=== PATIENT | male | born 1975 | race Caucasian/White ===

== ENCOUNTER 2022-12-02 08:09 | Outpatient (CLI) | payer OTHER, SELFPAY ==
[2022-12-02 14:55] LABS: Chloride* 103 mmol/L (96-114); Sodium* 138 mmol/L (135-149)
[2022-12-02 14:56] LABS: Potassium* 3.9 mmol/L (3.6-5.1)
[2022-12-02 14:58] LABS: Blood Urea Nitrogen* 17 mg/dL (5-24); Carbon Dioxide* 30 mmol/L (20-32); Cholesterol* 162 mg/dL (90-199); Estimated Glomerular Filt Rate 94 ml/min
[2022-12-02 14:59] LABS: Calcium* 9.2 mg/dL (8.4-10.6); Glucose* 89 mg/dL (60-115); HDL Cholesterol* 47 mg/dL (>=40); LDL Cholesterol Calculated 97 mg/dL (<100); Triglycerides* 90 mg/dL (40-149)
[2022-12-04 22:22] LABS: PSA Screen* 0.78 ng/mL (0.10-4.00)
== END 2022-12-02 08:10 | disposition home or self-care (01) ==
PROVIDERS: PCP Emergency Medicine; Visit Provider Emergency Medicine
DX: Z00.00 Encounter for general adult medical examination without abnormal findings (principal); I10 Essential (primary) hypertension; Z12.5 Encounter for screening for malignant neoplasm of prostate; Z13.6 Encounter for screening for cardiovascular disorders
CPT/HCPCS: 80048; 80061; 84153

== ENCOUNTER 2023-02-03 19:33 | Outpatient (CLI) | payer OTHER, SELFPAY ==
--- NOTE | 2023-02-11 08:54 | P.SLS_ITS ---
Sleep Study Details Details Interpreting Provider: Evert Date of Sleep Study: 02/03/23 Sleep Study Details: STUDY TYPE:? Home ? BMI:? 25.8 ORDERING PROVIDER:? Supriya INDICATION:? Concerns about sleep apnea ? SLEEP SUMMARY:? 566 minutes monitored RESPIRATORY SUMMARY:? AHI 11.6, supine 15.9, left lateral 3.0 Low oxygen 82 0.9% of study oxygen less than 90% Snoring 5.2% PERIODIC LIMB MOVEMENTS OF SLEEP:? Not recorded on home study CARDIAC:? Range 48-91, mean 60.6 IMPRESSION:? Mild obstructive sleep apnea with supine position dependency RECOMMENDATION: Treatment options include positional therapy, CPAP AutoSet 4- 17, dental appliance and/or airway expansion surgery. Would favor CPAP trial.
== END 2023-02-03 19:34 | disposition home or self-care (01) ==
LOC: SLEEP 19:34
PROVIDERS: PCP Emergency Medicine; Visit Provider Emergency Medicine
DX: G47.33 Obstructive sleep apnea (adult) (pediatric) (principal)
CPT/HCPCS: 95806

== ENCOUNTER 2023-04-01 16:44 | Emergency (ER) | payer OTHER, SELFPAY ==
[2023-04-01 16:50] VITALS: BP 126/80; PULSE 82; RESP 18; TEMP 36.6; O2SAT 98; BMI 26.0
[2023-04-01 17:02] LABS: Appearance Urine Cloudy (Clear); Bilirubin Urine Negative (Negative); Blood Urine Negative (Negative); Color Urine Yellow (Yellow); Glucose Urine Negative (Negative); Ketones Urine Negative (Negative); Leukocyte Esterase Urine Negative (Negative); Nitrite Urine Negative (Negative); Protein Urine Negative (Negative); Urobilinogen Urine 0.2 (0.2-1.0); pH Urine 7.5 (5.0-8.5)
--- NOTE | 2023-04-01 17:07 | CRLHL7_ITS ---
For Patients: As a result of the Century Cures Act, medical imaging exams and procedure reports are released immediately into your electronic medical record. You may view this report before your referring provider. If you have questions, please contact your health care provider. INDICATION: Right flank pain. TECHNIQUE: CT abdomen and pelvis without contrast. COMPARISON: March 16, 2021. FINDINGS: Lower chest: Scattered atelectasis. Liver: Normal in size and attenuation. No suspicious masses. Gallbladder and bile ducts: No stones or inflammation. No biliary dilatation. Pancreas: Unremarkable. No mass or inflammation. Spleen: Normal in size. No masses. Adrenal glands: Normal in size. No nodules. Kidneys: Right superior pole simple renal cyst. At least 2 punctate nonobstructing right renal stones. Normal in size. No suspicious masses, or hydronephrosis. GI tract: Mild colonic stool burden. Normal in caliber. No sign of mass or inflammation. Normal appendix. Vasculature: Abdominal aorta is normal in caliber. Lymph nodes: No lymphadenopathy. Peritoneum/Abdominal Wall: Right inguinal hernia repair. Tiny umbilical hernia. No sign of mass or infiltration. No free air or significant free fluid. Pelvis: Unremarkable. No pelvic masses. Bones: Unremarkable for age. IMPRESSION: No acute intra-abdominal/pelvic abnormality including obstructive uropathy as questioned. At least 2 punctate nonobstructing right renal stones. Mild colonic stool burden. Please note that all CT scans at this facility use dose modulation, iterative reconstruction, and/or weight-based dosing when appropriate to reduce radiation dose to as low as reasonably achievable. Dictated by Robert Perales MD @ 04/01/2023 5:47:21 PM (Electronically Signed)
[2023-04-01 17:17] LABS: Amorphous Sediment Urine Moderate; RBC Urine 0-2 (0-2); WBC Urine 0-2 (0-5)
--- NOTE | 2023-04-01 18:23 | ED_ITS ---
HPI - General Adult General Date Seen: 04/01/23 Chief complaint: Flank Pain Stated complaint: Kidney stone pain/symptoms Time Seen by Provider: 04/01/23 16:57 Source: patient Mode of arrival: ambulatory Limitations: no limitations History of Present Illness HPI narrative: Patient is a 48-year-old male comes in with about four days of pain in his right lower quadrant. It is not radiating up to his right flank. He is clear that is not moving in the other direction. There is no dysuria, urgency, frequency, hematuria. He does have a history of kidney stones and required a procedure wit h his last stone about five years ago. He is using some occasional Tylenol and the pain is never been severe. He has also had a right inguinal hernia repair with mesh. Related Data Home Medications Medication Instructions Recorded Confirmed aspirin 81 mg chewable tablet 81 mg PO DAILY 07/11/22 04/01/23 cholecalciferol (vitamin D3) 25 1,000 unit PO DAILY 07/11/22 04/01/23 mcg (1,000 unit) tablet loratadine 10 mg tablet 10 mg PO DAILY 07/11/22 04/01/23 Previous Rx's Medication Instructions Recorded clobetasol 0.05 % topical cream 1 applic topical QDAY #60 grams 08/08/22 diltiazem HCl 180 mg 180 mg PO DAILY #90 caps 12/04/22 capsule,extended release 24 hr losartan 100 1 tab PO DAILY #90 tabs 12/04/22 mg-hydrochlorothiazide 25 mg tablet valacyclovir 1 gram tablet 1,000 mg PO DAILY #90 tabs 12/04/22 Allergies Allergy/AdvReac Type Severity Reaction Status Date / Time lisinopril Allergy Mild eczema Verified 04/01/23 16:54 prednisone AdvReac Mild tachycardic, Verified 04/01/23 16:54 flushing Penicillin Allergy Mild Rash Uncoded 12/04/22 14:54 Review of Systems Narrative: Review of systems is outlined above otherwise noted to be negative. [facility] Medical History (Updated 04/01/23 @ 18:14 by Hebert Cantu MD) Snoring ?R06.83 - Snoring (ICD-10) Normal colonoscopy Abnormal EKG ?R94.31 - Abnormal electrocardiogram [ECG] [EKG] (ICD-10) Normal echocardiogram Psoriasis ?L40.9 - Psoriasis, unspecified (ICD-10) Occlusion of left ureter ?N13.5 - Crossing vessel and stricture of ureter without hydronephrosis (ICD- 10) Surgical History (Updated 04/18/22 @ 09:39 by Luis Null) History of ureter stent History of laser assisted in situ keratomileusis ?Z98.890 - Other specified postprocedural states (ICD-10) History of inguinal hernia repair (2006) ?Z98.890 - Other specified postprocedural states (ICD-10) ?Z87.19 - Personal history of other diseases of the digestive system (ICD-10) Family History (Updated 04/18/22 @ 09:40 by Luis Null) Mother Diabetes Heart disease High blood pressure Depression Father Heart disease High blood pressure, Onset Age: 20 Depression Maternal Grandfather Stroke, Onset Age: 57 Other Cancer Social History (Updated 04/18/22 @ 09:41 by Luis Null) Narrative: chewing tobacco use consumes alcohol occasionally 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 HEENT: Conjunctiva clear. Neck is supple without adenopathy. Lungs: Clear to auscultation in all espinosa. No wheezes, rales, rhonchi. Heart: Regular rate and rhythm without murmur. Abdomen: Soft with mild right lower quadrant tenderness. No palpable mass. No guarding, rigidity, rebound. Bowel sounds are normal. Mild right CVA te nderness. Extremities: No cyanosis or edema. Good distal pulses. Skin: No abnormalities noted of the exposed skin. Neurologic: Awake, alert, fully oriented. Neurologic exam is nonfocal. Const: Vital Signs, click to edit/add: Vital Signs - 24 hr 04/01/23 16:50 Temperature 98 F Pulse Rate [Pulse Oximeter] 82 Respiratory Rate 18 Blood Pressure [Ri ght Upper Arm] 126/80 Pulse Oximetry 98 Oxygen Delivery Me thod Room Air Course Course Hospital Course: Patient seen and examined. CT of the abdomen and pelvis without contrast is ordered to rule out kidney stone. He denies a need for pain medication. Reevaluation(s) Reevaluation #1: CT fails to show any abnormalities consistent with his pain. He has some mild constipation. Vital Signs Vital signs: Initial Vital Signs Temperature 98 F 04/01/23 16:50 Temperature Source Temporal Artery Scan 04/01/23 16:50 Pulse Rate 82 04/01/23 16:50 Respiratory Rate 18 04/01/23 16:50 Blood Pressure 126/80 04/01/23 16:50 Blood Pressure Mean 95 04/01/23 16:50 Blood Pressure Position Sitting 04/01/23 16:50 Pulse Oximetry 98 04/01/23 16:50 Oxygen Delivery Method Room Air 04/01/23 16:50 Vital Signs Temperature 98 F 04/01/23 16:50 Pulse Rate 82 04/01/23 16:50 Respiratory Rate 18 04/01/23 16:50 Blood Pressure 126/80 04/01/23 16:50 Pulse Oximetry 98 04/01/23 16:50 Oxygen Delivery Method Room Air 04/01/23 16:50 Temperature 98 F 04/01/23 16:50 Pulse Rate 82 04/01/23 16:50 Respiratory Rate 18 04/01/23 16:50 Blood Pressure 126/80 04/01/23 16:50 Pulse Oximetry 98 04/01/23 16:50 Oxygen Delivery Method Room Air 04/01/23 16:50 Medical Decision Making MDM Narrative Medical decision making narrative: He was reassured that he does not have a kidney stone. He certainly may have some discomfort and pulling from his mesh. I do not see anything acute. His pain is not severe. Lab Data Labs: Lab Results 04/01/23 Range/Units 16:50 Urine Color Yellow (Yellow) Urine Appearance Cloudy A (Clear) Urine pH 7.5 (5.0-8.5) Ur Specific [place] 1.020 (1.000-1.030) Urine Protein Negative (Negative) Urine Glucose (UA) Negative (Negative) Urine Ketones Negative (Negative) Urine Blood Negative (Negative) Urine Nitrite Negative (Negative) Urine Bilirubin Negative (Negative) Urine Urobilinogen 0.2 (0.2-1.0) Ur Leukocyte Esterase Negative (Negative) Urine RBC 0-2 (0-2) Urine WBC 0-2 (0-5) Ur Squamous Epith Cells None (None-Few) Amorphous Sediment Moderate A (None) Urine Bacteria None (None) Discharge Plan Discharge Clinical Impression: Right groin pain Patient Disposition: Home, Self-Care Condition: Stable Additional Instructions: Tylenol or Ibuprofen for pain. Heat. Stretching. Follow up in the clinic if not improving. Prescriptions: No Action clobetasol 0.05 % cream 1 applic topical QDAY Qty: 60 2RF Rx Instructions: Apply topically to affected area BID as directed. loratadine 10 mg tablet 10 mg PO DAILY cholecalciferol (vitamin D3) 25 mcg (1,000 unit) tablet 1,000 unit PO DAILY aspirin 81 mg tablet,chewable 81 mg PO DAILY diltiazem HCl 180 mg capsule,extended release 24hr 180 mg PO DAILY Qty: 90 4RF losartan-hydrochlorothiazide 100-25 mg tablet 1 tab PO DAILY Qty: 90 4RF valacyclovir 1 gram tablet 1,000 mg PO DAILY Qty: 90 3RF Follow Up/Referrals: Charlotte Epps MD [Primary Care Provider] - Stand Alone Forms: [employer] Info Instructions
== END 2023-04-01 18:21 | disposition home or self-care (01) ==
PROVIDERS: Emergency Provider Family Medicine; PCP Emergency Medicine
DX: R10.30 Lower abdominal pain, unspecified (principal)
CPT/HCPCS: 74176; 81001; 99282; 99283; 99284

== ENCOUNTER 2024-01-08 17:49 | Emergency (ER) | payer OTHER, SELFPAY ==
[2024-01-08 18:05] VITALS: BP 127/82; PULSE 71; RESP 18; TEMP 36.7; O2SAT 98; BMI 26.6
--- NOTE | 2024-01-08 18:17 | ED_ITS ---
HPI - General Adult General Date Seen: 01/08/24 Chief complaint: Abdominal Pain Stated complaint: stomach pain Time Seen by Provider: 01/08/24 18:13 History of Present Illness HPI narrative: 48-year-old male with a history of GERD, hypertension, known gallbladder sludge (has not had cholecystectomy), psoriatic arthritis, psoriasis, distant history of kidney stone with ureteral stent, previous repair, previous toe fracture who presents to the ER this afternoon for evaluation of abdominal pain affecting his right upper abdomen epigastric area. The pain radiates through to his back/right flank. Patient was on spring break with his family last week. They traveled to [place]. He does not drink alcohol but he does note that he a lot of heavy food that he ?probably should not have eaten? while he was on vacation. Beginning about 5 nights ago on Friday night he has developed some pain. It is located in his upper abdomen, on the right side of the epigastrium and sometimes radiating to the right upper quadrant and sometimes shooting through to his back and right flank. It has been persistent since Friday. He was mildly nauseous and his son was also slightly 6 so he 1st thought he might just have a ?stomach bug. ?. He he was trying to wait and see if his symptoms would get better. However they do not really get better. He is not really nauseous or vomiting but he has had a poor appetite. Bowel movements have been normal. Urination has been normal. No fever. Since yesterday his pain is actually been getting worse. It is not clearly triggered by food. This morning he had an episode where he felt like something might have passed like a kidney stone but then the pain came back again. No jaundice. No lower abdominal pain. Related Data Home Medications Medication Instructions Recorded Confirmed aspirin 81 mg chewable tablet 81 mg PO DAILY 07/11/22 01/08/24 cholecalciferol (vitamin D3) 25 1,000 unit PO DAILY 07/11/22 01/08/24 mcg (1,000 unit) tablet cetirizine 10 mg tablet (Zyrtec) 10 mg PO QDAY PRN 10/22/23 01/08/24 Previous Rx's Medication Instructions Recorded diltiazem HCl 180 mg 180 mg PO DAILY #90 caps 12/04/22 capsule,extended release 24 hr losartan 100 1 tab PO DAILY #90 tabs 12/04/22 mg-hydrochlorothiazide 25 mg tablet fluticasone propionate 50 1 spray intranasal QDAY #16 grams 10/09/23 mcg/actuation nasal spray,suspension (Flonase Allergy Relief) hydrocortisone acetate 25 mg 25 mg [place] BID #24 ea 10/22/23 rectal suppository (Anusol-HC) valacyclovir 1 gram tablet 1,000 mg PO DAILY #90 tabs 12/04/23 famotidine 20 mg tablet 20 mg PO BID 3 days #6 tabs 01/08/24 lansoprazole 30 mg capsule,delayed 30 mg PO QDAY 4 weeks #28 caps 01/08/24 release Allergies Allergy/AdvReac Type Severity Reaction Status Date / Time Penicillins Allergy Intermediate Rash Verified 01/08/24 11:56 lisinopril Allergy Mild eczema Verified 01/08/24 11:56 Influenza Virus Vaccines AdvReac Intermediate skin Verified 01/08/24 11:56 irritation on his face prednisone AdvReac Mild tachycardic, Verified 01/08/24 11:56 flushing [facility] Medical History (Updated 01/08/24 @ 21:29 by Matthew Welsh MD) GERD (gastroesophageal reflux disease) ?K21.9 - Gastro-esophageal reflux disease without esophagitis (ICD-10) Allergic rhinitis ?J30.9 - Allergic rhinitis, unspecified (ICD-10) Sleep apnea in adult ?G47.30 - Sleep apnea, unspecified (ICD-10) Psoriatic arthritis ?L40.50 - Arthropathic psoriasis, unspecified (ICD-10) Low vitamin D level ?R79.89 - Other specified abnormal findings of blood chemistry (ICD-10) Hypertension ?I10 - Essential (primary) hypertension (ICD-10) Herpes simplex virus (HSV) infection ?B00.9 - Herpesviral infection, unspecified (ICD-10) Abnormal EKG ?R94.31 - Abnormal electrocardiogram [ECG] [EKG] (ICD-10) Psoriasis ?L40.9 - Psoriasis, unspecified (ICD-10) Surgical History (Updated 04/18/22 @ 09:39 by uLis Null) History of ureter stent History of laser assisted in situ keratomileusis ?Z98.890 - Other specified postprocedural states (ICD-10) History of inguinal hernia repair (2006) ?Z98.890 - Other specified postprocedural states (ICD-10) ?Z87.19 - Personal history of other diseases of the digestive system (ICD-10) Family History (Updated 04/18/22 @ 09:40 by Luis Null) Mother Diabetes Heart disease High blood pressure Depression Father Heart disease High blood pressure, Onset Age: 20 Depression Maternal Grandfather Stroke, Onset Age: 57 Other Cancer Social History (Updated 04/18/22 @ 09:41 by Luis Null) Narrative: chewing tobacco use 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 Alert. Conversant. Non toxic. HENT: Head: Atraumatic. Nose: Nose normal. Mouth/Throat: Oral mucosa is clear and moist. no trismus. Pharynx normal Eyes: Conjunctivae normal. EOM normal. Pupils equal, round, and reactive to light. No scleral icterus. Neck: Normal range of motion. Neck supple. No tracheal deviation present. Cardiovascular: Normal rate, regular rhythm. No gallop. No friction rub. No murmur heard. Symmetric radial artery pulses Pulmonary/Chest: Effort normal. No stridor. No respiratory distress. No wheezes. No rales. No rhonchi . No tenderness. Abdominal: Soft. Bowel sounds normal. No distension. No mass. Right upper quadrant and epigastric tenderness. No hepatomegaly. No Little sign. No CVA tenderness. No rebound. No guarding. No lower abdominal tenderness. No palpable masses or hernias. Musculoskeletal: RUE: Normal range of motion. No tenderness. No deformity LUE: Normal range of motion. No tenderness. No deformity RLE: Normal range of motion. No edema. No tenderness. No deformity LLE: Normal range of motion. No edema. No tenderness. No deformity Neurological: Alert and oriented to person, place, and time. Normal strength. CN II-VII intact. No sensory deficit. GCS eye subscore is 4. GCS verbal subscore is 5. GCS motor subscore is 6. Normal coordination Skin: Skin is warm and dry. No rash noted. No pallor. Normal capillary refill. Psychiatric: Normal mood. Normal affect. Const: Vital Signs, click to edit/add: Vital Signs - 24 hr 01/08/24 18:05 Temperature 98.0 F Pulse Rate [Pulse Oximeter] 71 Respiratory Rate 18 [facility] 127/82 Pulse Oximetry 98 Oxygen Delivery Me thod Room Air Course Vital Signs Vital signs: Initial Vital Signs Temperature 98.0 F 01/08/24 18:05 Temperature Source Temporal Artery Scan 01/08/24 18:05 Pulse Rate 71 01/08/24 18:05 Pulse Rhythm Regular 01/08/24 18:05 Respiratory Rate 18 01/08/24 18:05 Blood Pressure 127/82 01/08/24 18:05 Blood Pressure Mean 97 01/08/24 18:05 Blood Pressure Position Sitting 01/08/24 18:05 Pulse Oximetry 98 01/08/24 18:05 Oxygen Delivery Method Room Air 01/08/24 18:05 Vital Signs Temperature 98.0 F 01/08/24 18:05 Pulse Rate 71 01/08/24 18:05 Respiratory Rate 18 01/08/24 18:05 Blood Pressure 127/82 01/08/24 18:05 Pulse Oximetry 98 01/08/24 18:05 Oxygen Delivery Method Room Air 01/08/24 18:05 Temperature 98.0 F 01/08/24 18:05 Pulse Rate 71 01/08/24 18:05 Respiratory Rate 18 01/08/24 18:05 Blood Pressure 127/82 01/08/24 18:05 Pulse Oximetry 98 01/08/24 18:05 Oxygen Delivery Method Room Air 01/08/24 18:05 Medical Decision Making MDM Narrative Medical decision making narrative: Very pleasant 48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 The differential diagnosis of abdominal pain includes: Appendicitis, Bowel Obstruction, Ulcer, Ischemia, Cholecystitis, Diverticulitis, Pancreatitis, UTI, kidney stone, Enteritis/Colitis, amongst many other etiologies. He reports a history of gallbladder sludge with previous gallbladder ultrasound and HIDA scan without any definitive finding of cholecystitis. He also has a history of GERD and possible stomach acid problems. Laboratory testing does not reveal a cause for the patient's pain. Right upper quadrant gallbladder and CT abdomen pelvis with contrast are both noted to show contracted gallbladder but no other signs of acute inflammation around the gallbladder. No other acute surgical finding discovered on imaging or lab workup. The exact etiology of the abdominal pain is not clear at this time. Symptoms could reflect possible peptic ulcer disease or duodenitis. No finding of clear inflammation on the stomach or duodenum noted on CT. No free air. No symptoms of GI bleeding. Hemodynamics are stable and hemoglobin is normal. No life threatening cause or need for emergent surgery or hospital admission is detected today. The patient was advised that if symptoms do not completely resolve within another 20 hours re-evaluation with primary care or return to the ED is indicated. The patient also understands that if they worsen, they should return to the ER right away. I discussed the uncertainty about the diagnosis and answered the patient's questions. Abdominal pain return precautions discussed. He was already started on famotidine by primary care today and will continue that. He wants to hold off on PPIs given previous side effects from omeprazole. I think it is reasonable to try empiric famotidine for now. He will follow up his primary care to consider further workup with EGD or H pylori testing. Lab Data Labs: Lab Results 01/08/24 01/08/24 Range/Units 18:30 18:32 WBC 9.85 (4.50-11.00) K/uL RBC 5.23 (4.30-5.90) m/uL Hgb 16.0 (13.5-17.5) gm/dL Hct 43.1 (37.0-53.0) % MCV 82 (80-100) fL MCH 31 (26-34) pg MCHC 37 H (32-36) gm/dL RDW Coeff of Tony 12.9 (11.5-15.5) % Plt Count 330 (140-440) K/uL Neut % (Auto) 60.8 (42.0-72.0) % Lymph % (Auto) 28.2 (20-44) % [place] % (Auto) 8.2 (0.0-11.0) % Eos % (Auto) 1.8 (0.0-7.0) % Baso % (Auto) 0.7 (0.0-3.0) % Neut # (Auto) 5.98 (1.7-7.0) K/uL Lymph # (Auto) 2.78 (0.90-2.90) K/uL [place] # (Auto) 0.80 (0.00-0.90) K/UL Eos # (Auto) 0.18 (0.00-0.50) K/uL Baso # (Auto) 0.07 (0.00-0.30) K/uL Abs Immat Gran (auto) 0.03 (0.00-0.30) K/uL Imm/Tot Granulo (auto) 0.3 % Sodium 137 (135-149) mmol/L Potassium 3.6 (3.6-5.1) mmol/L Chloride 102 (96-114) mmol/L Carbon Dioxide 27 (20-32) mmol/L Anion Gap 8 (7-15) mEq/L BUN 16 (5-24) mg/dL Creatinine 0.9 (0.5-1.5) mg/dL Estimated Creat Clear 98.17 Estimated GFR 106 ml/min Glucose 95 (60-115) mg/dL Calcium 9.2 (8.4-10.6) mg/dL Total Bilirubin 0.6 (0.1-1.5) mg/dL AST 24 (12-35) U/L ALT 28 (4-50) U/L Alkaline Phosphatase 103 (40-150) U/L Total Protein 7.8 (6.0-8.3) g/dL Albumin 4.6 (3.3-5.0) g/dL Lipase 108 (23-300) U/L Urine Color Yellow (Yellow) Urine Appearance Clear (Clear) Urine pH 6.0 (5.0-8.5) Ur Specific [place] 1.015 (1.000-1.030) Urine Protein Negative (Negative) Urine Glucose (UA) Negative (Negative) Urine Ketones Negative (Negative) Urine Blood Negative (Negative) Urine Nitrite Negative (Negative) Urine Bilirubin Negative (Negative) Urine Urobilinogen 0.2 (0.2-1.0) Ur Leukocyte Esterase Negative (Negative) Urine RBC 0-2 (0-2) Urine WBC 0-2 (0-5) Ur Squamous Epith Cells None (None-Few) Urine Bacteria None (None) Imaging Data RUQ US: Attestation: I have reviewed the pertinent imaging results. Radiologist's impression: IMPRESSION: Gallbladder is collapsed with no stones or sludge identified. No significant wall thickness or pericholecystic fluid however there is positive sonographic Little sign of unknown etiology. CT scan - abdomen: Attestation: I have reviewed the pertinent imaging results. Radiologist's impression: Impression: Redemonstration of a somewhat contracted appearing gallbladder. Findings are better characterized on comparison ultrasound. No other acute intra-abdominal abnormality. Discharge Plan Discharge Clinical Impression: Abdominal pain Patient Disposition: Home, Self-Care Condition: Stable Instructions: Abdominal Pain (ED) Additional Instructions: As we discussed, your workup does not reveal the cause for your pain at this time. Please continue on the stomach acid medicine. Monitor your symptoms carefully and if you get worse such as if you have severe pain, fever, bloody vomiting, uncontrolled vomiting or dehydration, weakness, or any other concerning symptoms come back to the ER right away. It please follow-up with your regular doctor tomorrow for a recheck. Prescriptions: No Action cetirizine [Zyrtec] 10 mg tablet 10 mg PO QDAY PRN hydrocortisone acetate [Anusol-HC] 25 mg suppository 25 mg [place] BID Qty: 24 0RF cholecalciferol (vitamin D3) 25 mcg (1,000 unit) tablet 1,000 unit PO DAILY aspirin 81 mg tablet,chewable 81 mg PO DAILY diltiazem HCl 180 mg capsule,extended release 24hr 180 mg PO DAILY Qty: 90 4RF losartan-hydrochlorothiazide 100-25 mg tablet 1 tab PO DAILY Qty: 90 4RF famotidine 20 mg tablet 20 mg PO BID 3 Days Qty: 6 0RF lansoprazole 30 mg capsule,delayed release(DR/EC) 30 mg PO QDAY 28 Days Qty: 28 0RF fluticasone propionate [Flonase Allergy Relief] 50 mcg/actuation spray,suspension 1 spray intranasal QDAY Qty: 16 5RF Rx Instructions: administer into each nostril valacyclovir 1 gram tablet 1,000 mg PO DAILY Qty: 90 3RF Follow Up/Referrals: Hebert Cantu MD [Primary Care Provider] - Stand Alone Forms: [employer] Info Instructions
--- NOTE | 2024-01-08 18:20 | US_ITS ---
Patient: RAUL STAPLES Facility:?[facility] Patient ID:?[id number] Site Patient ID:?[id number]. Site :?1975 Study:?US-Abdomen RUQ-01/08/2024 7:40:09 PM Ordering Physician:?ANGEL BECERRA M.D. Final Report: INDICATION: Right upper quadrant abdomen pain. TECHNIQUE: Ultrasound abdomen limited. Sonographic images of the right upper quadrant were obtained using quesada-scale and color Doppler images. COMPARISON: None. FINDINGS: Liver: Normal in size and echotexture. No suspicious masses. No intrahepatic biliary dilatation. Gallbladder: Gallbladder is collapsed. No stones or sludge identified. No pericholecystic fluid. Normal wall thickness.. Positive sonographic Little sign. Common bile duct: 4 mm. Pancreas: Not well visualized. Right kidney: Normal in size. Normal echotexture and cortex. Subtle hypodensity at the inferior pole of the right kidney likely a cyst measuring up to 1.9 centimeters in diameter. No suspicious masses, stones, or hydronephrosis. Vasculature: Proximal abdominal aorta and IVC are unremarkable. IMPRESSION: Gallbladder is collapsed with no stones or sludge identified. No significant wall thickness or pericholecystic fluid however there is positive sonographic Little sign of unknown etiology. Dictated by Viviane Rosario MD @ 01/08/2024 8:21:39 PM Signed by:?Viviane Rosario MD @01/08/2024 8:21:39 PM (Electronic Signature)
[2024-01-08 18:44] LABS: Basophils Absolute Auto 0.07 K/uL (0.00-0.30); Basophils Percent Auto 0.7 % (0.0-3.0); Eosinophils Absolute Auto 0.18 K/uL (0.00-0.50); Eosinophils Percent Auto 1.8 % (0.0-7.0); Hematocrit 43.1 % (37.0-53.0); Immature Granulocytes Abs Auto 0.03 K/uL (0.00-0.30); Immature Granulocytes Pct Auto 0.3 %; Lymphocytes Absolute Auto 2.78 K/uL (0.90-2.90); Lymphocytes Percent Auto 28.2 % (20-44); Mean Corpuscular HGB Conc 37 gm/dL (32-36); Mean Corpuscular Hemoglobin 31 pg (26-34); Mean Corpuscular Volume 82 fL (80-100); Monocytes Percent Auto 8.2 % (0.0-11.0); Neutrophils Absolute Auto 5.98 K/uL (1.7-7.0); Neutrophils Percent Auto 60.8 % (42.0-72.0); Platelet Count* 330 K/uL (140-440); RDW Coefficient of Variation % 12.9 % (11.5-15.5); Red Blood Count 5.23 m/uL (4.30-5.90); White Blood Count* 9.85 K/uL (4.50-11.00)
[2024-01-08 18:47] LABS: Appearance Urine Clear (Clear); Bilirubin Urine Negative (Negative); Blood Urine Negative (Negative); Color Urine Yellow (Yellow); Glucose Urine Negative (Negative); Ketones Urine Negative (Negative); Leukocyte Esterase Urine Negative (Negative); Nitrite Urine Negative (Negative); Protein Urine Negative (Negative); Specific Gravity Urine 1.015 (1.000-1.030); Urobilinogen Urine 0.2 (0.2-1.0)
[2024-01-08 18:55] LABS: Slide Review Reflex No
[2024-01-08 18:58] LABS: Albumin* 4.6 g/dL (3.3-5.0); Chloride* 102 mmol/L (96-114); Potassium* 3.6 mmol/L (3.6-5.1); Sodium* 137 mmol/L (135-149)
[2024-01-08 19:00] LABS: Bilirubin Total* 0.6 mg/dL (0.1-1.5); Creatinine* 0.9 mg/dL (0.5-1.5); Est. Creatinine Clearance* 98.17; Estimated Glomerular Filt Rate 106 ml/min
[2024-01-08 19:01] LABS: Alanine Aminotransferase* 28 U/L (4-50); Alkaline Phosphatase* 103 U/L (40-150); Anion Gap 8 mEq/L (7-15); Aspartate Amino Transferase* 24 U/L (12-35); Blood Urea Nitrogen* 16 mg/dL (5-24); Calcium* 9.2 mg/dL (8.4-10.6); Carbon Dioxide* 27 mmol/L (20-32); Glucose* 95 mg/dL (60-115); Lipase* 108 U/L (23-300); Total Protein* 7.8 g/dL (6.0-8.3)
[2024-01-08 19:21] LABS: RBC Urine 0-2 (0-2); WBC Urine 0-2 (0-5)
--- NOTE | 2024-01-08 19:23 | CT_ITS ---
Patient: RAUL STAPLES Facility:?[facility] RIS Patient ID:?[id number] Site Patient ID:?[id number]. Site :?1975 Study:?CT-Abdomen/Pelvis W ISOVUE 370-01/08/2024 7:53:23 PM Ordering Physician:SELAM Final Report: Indication: Epigastric and right upper quadrant pain Technique: Volumetric multidetector CT images of the abdomen and pelvis were obtained after the administration of intravenous contrast. 85 cc Isovue 370 low osmolar intravenous contrast Comparison: CT abdomen and pelvis April 01, 2023 and right upper quadrant ultrasound January 08, 2024 Findings: The lung bases demonstrate minimal basilar atelectasis with a small left basilar pneumatocele. The liver is normal in attenuation without intrahepatic biliary ductal dilatation. The portal vein is patent. The gallbladder is mildly contracted. There is no significant common biliary ductal dilatation or abrupt cut off. The spleen is normal in enhancement and size. The stomach and duodenum are grossly unremarkable. The pancreas is normal in enhancement without significant atrophy. The adrenal glands are unremarkable. Cystic changes of the right kidney are again seen with otherwise preserved corticomedullary differentiation. There is a mild amount of stool seen throughout the colon. There is mild distal colonic diverticulosis. The appendix is unremarkable. There is no significant mesenteric, retroperitoneal, or pelvic sidewall lymph nodes. The aorta is nonaneurysmal. There is no significant atherosclerotic disease appreciated. The solid pelvic viscera are grossly unremarkable. There is no free fluid or free air. There is demonstration of a right inguinal mesh. The lumbar vertebral body heights are grossly maintained in satisfactory alignment without evidence of displaced fracture, lytic or blastic lesion. Impression: Redemonstration of a somewhat contracted appearing gallbladder. Findings are better characterized on comparison ultrasound. No other acute intra-abdominal abnormality. Please note that all CT scans at this facility use dose modulation, iterative reconstruction, and/or weight-based dosing when appropriate to reduce radiation dose to as low as reasonably achievable. Dictated by David Coughlin MD @ 01/08/2024 8:46:22 PM Signed by:?David Coughlin MD @01/08/2024 8:46:22 PM (Electronic Signature)
== END 2024-01-08 21:39 | disposition home or self-care (01) ==
PROVIDERS: Emergency Provider Emergency Medicine; PCP Family Medicine
DX: R10.9 Unspecified abdominal pain (principal)
CPT/HCPCS: 36415; 74177; 76705; 80053; 81001; 83690; 85025; 99284; 99285; Q9967

== ENCOUNTER 2024-02-03 08:40 | Outpatient (CLI) | payer OTHER, SELFPAY ==
--- OUTSIDE RECORDS SUMMARY | 2024-02-03 08:44 | XMS_ITS | Clinical Summary ---
Author Name Unknown Organization [facility] [employer] [facility] Address [address] [address] Phone Care Team Providers Care Route Delivery Clerk Name Role Phone Unavailable Primary Care Provider Unavailabl e Allergies Active Allergy Reactions Criticality Noted Date Comments Lisinopril Tachycardia Medium 05/08/2018 Penicillins RASH Medium 08/10/2015 Medications Medication Sig Dispensed Refills Start Date End Date Status aspirin EC 81 MG tablet Take 81 mg by mouth one time a day. Active atenolol (Tenormin) 25 MG tablet Take 25 mg by mouth two times a day. 05/30/2020 Active cyclobenzaprine (Flexeril) 10 MG tablet TAKE 1 TABLET BY MOUTH EVERY DAY AT BEDTIME NEEDED FOR MUSCLE SPASM 06/22/2023 Active dilTIAZem XR (Dilacor XR) 180 MG 24 hour capsule Take 180 mg by mouth one time a day. 06/11/2022 Active hydroCHLOROthiazide (Hydrodiuril) 25 MG tablet Take 25 mg by mouth one time a day. 07/12/2020 Active losartan-hydroCHLOROth iazide (Hyzaar) 100-25 MG oral tablet Take 1 Tablet by mouth one time a day. 12/04/2018 Active valACYclovir (Valtrex) 1 GM tablet Take 1 g by mouth one time a day. Active Active Problems No known active problems Social History Tobacco Use Types Packs/Day Years Used Date Smoking Tobacco: Never Smokeless Tobacco: Current Tobacco Cessation:Ready to Q uit: No; Counseling Given: No Sex and Gender Information Value Date Recorded Sex Assigned at Not on file Gender Identity Not on file Sexual Orientation Not on file Job Start Date Occupation Industry Not on file Not on file Not on file Obstetrics History Last Filed Vital Signs Vital Sign Reading Time Taken Comments Blood Pressure 113/73 06/28/2023 1:30 PM CDT Pulse 76 06/28/2023 1:30 PM CDT Temperature 36.6 ??C (97.9 ??F) 06/28/2023 1:30 PM CD T Respiratory Rate 12 06/28/2023 1:30 PM CDT Oxygen Saturation 100% 06/28/2023 1:30 PM CDT Inhaled Oxygen Concentration - - Weight - - Height - - Body Mass Index - - Plan of Treatment Health Maintenance Due Date Last Done Comments CT Colonography 1975 Cologuard 1975 Colonoscopy 1975 Colorectal Cancer Screening 1975 FIT/FOBT 1975 Sigmoidoscopy 1975 Hepatitis B Vaccine (Standin g Order) (1 of 3 - 19+ 3-dose series) 02/25/1995 PERTUSSIS (Standing Order) 02/25/1995 TETANUS (Standing Order) 02/25/1995 COVID-19 Vaccine (2022-2 4 season) 2023 Influenza Vaccine Seasonal (Standing Order) (#1) 2023 HPV Vaccine (Standing Order) Aged Out No longer eligible based on patient's age to complete this topic Pneumococcal/PCV20 Vaccine: Pediatrics (2-5 yrs) and At-Risk Patients (6-64 yrs) (Standing Order) Aged Out No longer eligible b ased on patient's age to complete this topic Artur Francis I Personal/Family Self 1975 [address] [facility] [place] [id number]
--- OUTSIDE RECORDS SUMMARY | 2024-02-03 08:44 | XMS_ITS | Continuity of Care Document ---
Author Name [facility] Organization [facility] Care Team Providers Care Poultry Picker Name Role Phone [facility] Unavailable Unavailable Problems Combined list of problems from Department of Defense and Veterans Affairs facilities. It does not include entries that were removed or entered in error. Problem Status Onset Date Problem Type Date of Resolution Comme nts Source upper respiratory infection Active Condition DoD Medications Combined list of outpatient medications from Department of Defense and Veterans Affairs facilities.Medications provided include 1) outpatient medications from the last 15 months, and 2) patient-reported medications. Medication Details Route Status Patient Instructions Prescription Expires Prescription Number Last Dispense Date Ordering Provider Order Date Order Qty Source FAMOTIDINE (FAMOTIDINE ), 20MG, TABLET, ORAL, IVAX PHARMACEUT, 100 ea. BOTTLE Active [id number] 2023 6 Pharmac y Data Transac tion Service Facilit y FLUTICASONE PROPIONATE (FLUTICASON E PROPIONATE) , 50MCG, SPRAY SUSP, NASAL, APOTEX NICHOLE, 16 g AER W/ADAP Active [id number] 2023 16 Pharmac y Data Transac tion Service Facilit y FLUTICASONE PROPIONATE (FLUTICASON E PROPIONATE) , 50MCG, SPRAY SUSP, NASAL, APOTEX NICHOLE, 16 g AER W/ADAP Active [id number] 4 2023 16 Pharmac y Data Transac tion Service Facilit y FLUTICASONE PROPIONATE (FLUTICASON E PROPIONATE) , 50MCG, SPRAY SUSP, NASAL, APOTEX NICHOLE, 16 g AER W/ADAP Active [id number] 4 2023 16 Pharmac y Data Transac tion Service Facilit y HYDROCORTIS ONE ACETATE (hydrocorti sone acetate), 25 MG, SUPP.RECT, RECTAL, PATRIN PHARMA, 12 ea. BOX Cancele d [id number] : 2023 0 Pharmac y Data Transac tion Service Facilit y HYDROCORTIS ONE ACETATE (hydrocorti sone acetate), 25 MG, SUPP.RECT, RECTAL, PATRIN PHARMA, 12 ea. BOX Cancele d [id number] : 2023 0 Pharmac y Data Transac tion Service Facilit y HYDROCORTIS ONE ACETATE (hydrocorti sone acetate), 25 MG, SUPP.RECT, RECTAL, PATRIN PHARMA, 12 ea. BOX Cancele d [id number] : 2023 0 Pharmac y Data Transac tion Service Facilit y HYDROCORTIS ONE ACETATE (hydrocorti sone acetate), 25 MG, SUPP.RECT, RECTAL, PATRIN PHARMA, 12 ea. BOX Active [id number] 4 2023 24 Pharmac y Data Transac tion Service Facilit y LANSOPRAZOL E (lansoprazo le), 30 MG, CAPSULE , ORAL, evolso, 90 ea. BOTTLE Active [id number] 4 2023 28 Pharmac y Data Transac tion Service Facilit y LOSARTAN-HY DROCHLOROTH IAZIDE (LOSARTAN/H YDROCHLOROT HIAZIDE), 100MG-25MG, TABLET, ORAL, AUROBINDO PHARM, 90 ea. BOTTLE Active [id number] 4 2023 90 Pharmac y Data Transac tion Service Facilit y OMEPRAZOLE (omeprazole ), 20 MG, CAPSULE DR ORAL, evolso, 1000 ea. BOTTLE Active [id number] 4 2023 30 Pharmac y Data Transac tion Service Facilit y OMEPRAZOLE (omeprazole ), 20 MG, CAPSULE DR ORAL, evolso, 1000 ea. BOTTLE Active [id number] 4 2023 30 Pharmac y Data Transac tion Service Facilit y OMEPRAZOLE (omeprazole ), 20 MG, CAPSULE DR ORAL, evolso, 1000 ea. BOTTLE Active [id number] 4 2023 30 Pharmac y Data Transac tion Service Facilit y ZOLPIDEM TARTRATE (ZOLPIDEM TARTRATE), 10MG, TABLET, ORAL, AUROBINDO PHARM, 100 ea. BOTTLE Active [id number] 4 2023 30 Pharmac y Data Transac tion Service Facilit y Immunizations Combined list of available immunizations from the Department of Defense and Veterans Affairs facilities. Immunization Series Date Given Administered By Site Reaction Lot Number CVX Code Drug Supervisor Laboratory Status Comments Source Influenza, injectable, MDCK, preservative free, quadrivalent 2019 OVERHOLT, () Not Given Influenza , injectabl e, MDCK, preservat bhavana free, quadrival ent DoD Encounters Combined list of: 1) Encounters from Department of Veterans Affairs facilities going back up to thelast 18 months. 2) Encounters from the Department of Defense facilities going back up to 280 months. Location Location Details Encounter Type Encounter Number Reason For Visit Attending Provider ADM Date DC Date Status Disposition Source Theater Facility OUTPATIENT [id number] 05/05 Released w/o Limitations Theater Facilit y Theater Facility OUTPATIENT [id number] 05/09 Released w/o Limitations Theater Facilit y Social History Combined list of available smoking, tobacco, and other social history from Department of Defense and Veterans Affairs facilities. Social History Type Response Date Comment Sour e This section is an empty social history section. DoD
--- OUTSIDE RECORDS SUMMARY | 2024-02-03 08:44 | XMS_ITS | Clinical Summary ---
Author Name Unknown Organization [employer] [facility] Address [place], [place] [address] Care Team Providers Care Rv Parts And Service Director Name Role Phone BabakRomeo Marie LAWSON Primary Care Provider [phone] Allergies Active Allergy Reactions Criticality Noted Date Comments Lisinopril Tachycardia 05/08/2018 Penicillins Rash 08/10/2015 Medications Medication Sig Dispensed Refills Start Date End Date Status aspirin (ECOTRIN) 81 mg enteric coated tablet Take 81 mg by mouth once daily with a meal. Active valACYclovir (VALTREX) 1 gram tablet Take 1 g by mouth once daily. Active losartan-hydrochloro thiazide (HYZAAR) 100-25 mg tabletIndications:Es sential hypertension Take 1 tablet by mouth once daily. 90 tablet 3 12/04/2018 Active atenoloL (TENORMIN) 25 mg tabletIndications:HT N (hypertension) Take 1 tablet by mouth 2 times daily. Annual cardiology visit due 04/2020. Future refills at time of visit 180 tablet 05/30/2020 Active hydroCHLOROthiazide (HCTZ) 25 mg tabletIndications:HT N (hypertension) Take 1 tablet by mouth once daily. 90 tablet 07/12/2020 Active DILT-XR 180 mg Extended-Release capsuleIndications:H TN (hypertension) TAKE 1 CAPSULE(180 MG) BY MOUTH EVERY DAY 90 Capsule 3 06/11/2022 Active dilTIAZem (DILT-XR) 180 mg Extended-Release capsuleIndications:H TN (hypertension) Take 1 Capsule (180 mg) by mouth once daily. 90 Capsule 2 06/11/2022 Active Active Problems Problem Noted Date Diagnosed Date Urinary tract obstruction by kidney stone 2017 Abdominal pain 05/07/2018 Acute kidney injury 05/07/2018 Leukocytosis 05/07/2018 Hypertension 05/07/2018 Anxiety 05/07/2018 Resolved Problems Problem Noted Date Diagnosed Date Resolved Date Abdominal pain, epigastric 08/10/2015 0 05/07/2018 Diarrhea 08/10/2015 05/07/2018 Family History Medical History Relation Name Comments Coronary artery disease Mother Relation Name Status Comments Father Alive Mother (Age 57) Social History Tobacco Use Types Packs/Day Years Used Date Smoking Tobacco: Never Smokeless Tobacco: Former Quit: 10/06/2009 Tobacco Cessation:Counseling Given: Yes Alcohol Use Standard Drinks/Week Comments Yes 0 (1 standard drink = 0.6 oz pur e alcohol) 1 or 2 drinks weekly Social Connections Answer Date Recorded Frequency of Communication with Friends and Fami ly Not on file 10/06/2021 Financial Resource Strain Answer Date R ecorded Difficulty of Paying Living Expenses Not on file 10/06/2021 Difficulty of Paying Living Expenses Not on file 10/06/2021 Sex and Gender Information Value Date Recorded Sex Assigned at Not on file Gender Identity Not on file Sexual Orientation Not on file Obstetrics History Last Filed Vital Signs Vital Sign Reading Time Taken Comments Blood Pressure 104/64 08/18/2020 9:14 AM DETECTIVE PRECINCT Pulse 65 08/18/2020 9:14 AM DETECTIVE PRECINCT Temperature 36.6 ??C (97.9 ??F) 05/18/2018 3:45 PM CD T Respiratory Rate 16 08/18/2020 9:14 AM DETECTIVE PRECINCT Oxygen Saturation 97% 05/18/2018 3:45 PM CDT Inhaled Oxygen Concentration - - Weight 74.8 kg (165 lb) 02/07/2021 9:46 AM CDT Height 172.7 cm (5' 8) 02/07/2021 9:46 AM CDT Body Mass Index 25.09 02/07/2021 9:46 AM CDT Plan of Treatment Health Maintenance Due Date Last Done Comments Tdap 02/25/1987 Depression screening for age 12+ 1988 HIV for age 15-65 02/25/1991 Hepatitis C screening for ag e 18-79 02/25/1994 Tetanus booster 1996 Colonoscopy through age 75 02/25/2021 Lipids for age 45-75 02/25/2021 BMI (ht and wt on same day) for age 18+ 02/07/2022 02/07/2021, 05/18/2018, 07/02/2017 COVID-19 vaccine series (2022- season) 2023 10/30/2021, 11/30/2020 Influenza for age 9-49 06/06/2024 Pneumococcal series for age 6-64 Aged Out No longer eligible b ased on patient's age to complete this topic Medical Devices Implanted Type Area Security And Compliance Analyst Device Identifier Shelf Expiration Date Model / Serial / Lot Stent Uret [id number] Silhouette - [id number] Implanted:Qty: 1 on 05/08/2018 by Errol Conner MD at [facility] Left: [employer] 02/17/2020 [id number] / / [id number] Advance Directives * Full Code (Latest Code Status on File) Date Activated Date Inactivated Comments 05/08/2018 12:40 AM 05/09/2018 2:19 PM * Full Code Date Activated Date Inactivated Comments 06/05/2011 9:59 AM 06/06/2011 2:27 AM Care Teams Rv Parts And Service Director Relationship Specialty Start Date End Date Romeo Hilliard, PAKatieC [address] [place] [id number] PCP - General Physician Input Output Clerk 12/08/18
--- NOTE | 2024-02-03 09:43 | W.ANESCHARGE ---
Anesthesia Charges Start Date/Time Anesthesia Start Date: 02/03/24 Anesthesia Start Time: 09:23 Stop Date/Time Anesthesia Stop Date: 02/03/24 Anesthesia Stop Time: 09:40
--- NOTE | 2024-02-03 11:34 | W.ANESCHARGE ---
Anesthesia Charges Start Date/Time Anesthesia Start Date: 02/03/24 Anesthesia Start Time: 09:23 Stop Date/Time Anesthesia Stop Date: 02/03/24 Anesthesia Stop Time: 09:40
== END 2024-02-03 08:41 | disposition home or self-care (01) ==
LOC: OP CLINIC 08:41
PROVIDERS: PCP Family Medicine; Visit Provider Surgery
DX: R10.13 Epigastric pain (principal)
CPT/HCPCS: 00731; 43239; 88305; J2704; J3490

== ENCOUNTER 2024-02-19 12:57 | Outpatient (CLI) | payer OTHER, SELFPAY ==
--- OUTSIDE RECORDS SUMMARY | 2024-02-19 13:00 | XMS_ITS | Clinical Summary ---
Author Name Unknown Organization [employer] [facility] Address [place], [place] [address] Care Team Providers Care Mainframe Programmer Name Role Phone BabakRomeo Marie LAWSON Primary Care Provider [phone] Allergies Active Allergy Reactions Criticality Noted Date [...] epigastric 08/10/2015 0 05/07/2018 Diarrhea 08/10/2015 05/07/2018 Encounters Date Type Department Care Team Description 02/03/2024 Lab Requisition [facility] [phone] Rubia Willis MD from Last 3 Months Family History Medical History Relation Name Comments [...] Comments Blood Pressure 104/64 08/18/2020 9:14 AM HOTEL MAINTENANCE TECHNICIAN Pulse 65 08/18/2020 9:14 AM HOTEL MAINTENANCE TECHNICIAN Temperature 36.6 ??C (97.9 ??F) 05/18/2018 3:45 PM CD T Respiratory Rate 16 08/18/2020 9:14 AM HOTEL MAINTENANCE TECHNICIAN Oxygen Saturation 97% 05/18/2018 3:45 PM CDT [...] this topic Medical Devices Implanted Type Area Credit Risk Management Director Device Identifier Shelf Expiration Date Model / Serial / Lot Stent Uret [id number] Silhouette - [id number] Implanted:Qty: 1 on 05/08/2018 by Errol Conner MD at [facility] Left: [employer] 02/17/2020 [id number] / / [id number] Procedures Procedure Name Priority Date/Time Associated Diagnosis Comments LAB TRACKING EVENT Routine 02/03/2024 9: 30 AM CDT PATH TISSUE EXAM Routine 02/03/2024 9:30 AM CDT from Last 3 Months Results * LAB TRACKING EVENT (02/03/2024 9:30 AM CDT) Other (Other) Client Collect / Unknown 02/03/2024 9:30 AM CDT 02/03/2024 9:42 PM CDT Rubia Willis MD LAB BILL ONLY [facility] [address] [place] [address], * PATH TISSUE EXAM (02/03/2024 9:30 AM CDT) Case Report Pathology Report ?Case: [id number] ? Authorizing Provider: ??Lazaro, Rubia, MD ?Collected: ? 02/03/2024 0930 ? Ordering Location: ? [facility] ?Received: ?02/04/2024 1015 ? Pathologist: ? Mounajjed, Taofic, MD ? Specimens: ?? A) - Duodenum Biopsy ? B) - Stomach Biopsy ? C) - Distal Esophagus Biopsy ? D) - Mid Esophagus Biopsy ? 02/05/2024 1:02 PM CDT [facility] Final Diagnosis A) DUODENUM, BIOPSY: 1. Normal duodenal mucosa 2. Negative for celiac disease and other enteropathy B) STOMACH, BIOPSY: 1. Gastric antral and body mucosae with no diagnostic abnormalities 2. Negative for Helicobacter C) ESOPHAGUS, DISTAL, BIOPSY: 1. Normal esophageal squamous mucosa 2. Negative for reflux changes and eosinophilic esophagitis 3. Negative for columnar mucosa D) ESOPHAGUS, MID, BIOPSY: 1. Normal esophageal squamous mucosa 2. Negative for reflux changes and eosinophilic esophagitis 3. Negative for columnar mucosa 02/05/2024 1:02 PM CDT [facility] Clinical Information Epigastric abdominal pain. Upper GI endoscopy showed no mucosal abnormalities. 02/05/2024 1:02 PM CDT [facility] Gross Description A) Received in formalin are 7 reddy mucosal fragments ranging from 2 mm to 3 mm in greatest dimension, which are entirely submitted in one cassette. It is labeled with the patient's name and designated duodenal biopsy. B) Received in formalin are 5 reddy mucosal fragments ranging from 3 mm to 5 mm in greatest dimension, which are entirely submitted in one cassette. It is labeled with the patient's name and designated random stomach biopsies. C) Received in formalin are 4 reddy mucosal fragments ranging from 3 mm to 4 mm in greatest dimension, which are entirely submitted in one cassette. It is labeled with the patient's name and designated distal esophagus biopsy. D) Received in formalin are 4 reddy mucosal fragments ranging from 3 mm to 4 mm in greatest dimension, which are entirely submitted in one cassette. It is labeled with the patient's name and designated mid esophagus biopsies. Teetee Pizarro 02/04/2024 10:41 AM 02/05/2024 1:02 PM CDT [facility] Microscopic Description The final diagnosis is based on microscopic examination of appropriate sections of all specimens. 02/05/2024 1:02 PM CDT [facility] Additional Information Interpreted at [facility], Central Laboratory - [address], [place] [address] 02/05/2024 1:02 PM CDT [facility] Other (Duodenum Biopsy) 02/03/2024 9:30 AM CDT 02/04/2024 10:15 AM CDT Specimen (specimen) (Stomach Biopsy) 02/03/2024 9:30 AM CDT 02/04/2024 10:15 AM CDT Specimen (specimen) (Distal Esophagus Biopsy) 02/03/2024 9:30 AM CDT 02/04/2024 10:15 AM CDT Specimen (specimen) (Mid Esophagus Biopsy) 02/03/2024 9:30 AM CDT 02/04/2024 10:15 AM CDT Rubia Willis MD PATHOLOGY[facility]Y [facility] [address] [place] [address], from Last 3 Months Advance Directives * Full Code (Latest Code Status on File) Date Activated Date Inactivated Comments 05/08/2018 12:40 AM 05/09/2018 2:19 PM * Full Code Date Activated Date Inactivated Comments 06/05/2011 9:59 AM 06/06/2011 2:27 AM Care Teams Mainframe Programmer Relationship Specialty Start Date End Date Romeo Hilliard PA-C [facility] [place], [place] [id number] PCP - General Physician Outside Machinist Supervisor 12/08/18
--- OUTSIDE RECORDS SUMMARY | 2024-02-19 13:00 | XMS_ITS | Continuity of Care Document ---
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 BOTTLE Active [id number] 4 2023 6 Pharmac y Data Transac tion Service Facilit y FLUTICASONE PROPIONATE (FLUTICASON E PROPIONATE) , 50MCG, SPRAY SUSP, NASAL, APOTEX NICHOLE, 16 g AER W/ADAP Active [id number] 2023 16 Pharmac y Data Transac tion Service Facilit y FLUTICASONE PROPIONATE (FLUTICASON E PROPIONATE) , 50MCG, SPRAY SUSP, NASAL, APOTEX NICHOLE, 16 g AER W/ADAP Active [id number] 4 2023 16 Pharmac y Data Transac tion Service Facilit y FLUTICASONE PROPIONATE (FLUTICASON E PROPIONATE) , 50MCG, SPRAY SUSP, NASAL, APOTEX NICHOLE, 16 g AER W/ADAP Active [id number] 4 2023 16 Pharmac y Data Transac tion Service Facilit y HYDROCORTIS ONE ACETATE (hydrocorti sone acetate), 25 MG, SUPP.RECT, RECTAL, PATRIN PHARMA, 12 ea. [address] C[address] [id number] 4 [id number] : 2023 0 Pharmac y Data Transac tion Service Facilit y HYDROCORTIS ONE ACETATE (hydrocorti sone acetate), 25 MG, SUPP.RECT, RECTAL, PATRIN PHARMA, 12 ea. BOX Cancele d [id number] : 2023 0 Pharmac y Data Transac tion Service Facilit y HYDROCORTIS ONE ACETATE (hydrocorti sone acetate), 25 MG, SUPP.RECT, RECTAL, PATRIN PHARMA, 12 ea. BOX Cancele d [id number] 4 [id number] : 2023 0 Pharmac y Data Transac tion Service Facilit y HYDROCORTIS ONE ACETATE (hydrocorti sone acetate), 25 MG, SUPP.RECT, RECTAL, PATRIN PHARMA, 12 ea. BOX Active [id number] 4 2023 24 Pharmac y Data Transac tion Service Facilit y LANSOPRAZOL E (lansoprazo le), 30 MG, CAPSULE , ORAL, [employer], 90 ea. BOTTLE Active [id number] 4 2023 28 Pharmac y Data Transac tion Service Facilit y LOSARTAN-HY DROCHLOROTH IAZIDE (LOSARTAN/H YDROCHLOROT HIAZIDE), 100MG-25MG, TABLET, ORAL, [employer]UROB[employer] PHARM, 90 ea. BOTTLE Active [id number] 4 2023 90 Pharmac y Data Transac tion Service Facilit y OMEPRAZOLE (omeprazole ), 20 MG, CAPSULE DR ORAL, [employer], 1000 ea. BOTTLE Active [id number] 4 2023 30 Pharmac y Data Transac tion Service Facilit y OMEPRAZOLE (omeprazole ), 20 MG, CAPSULE DR ORAL, [employer], 1000 ea. BOTTLE Active [id number] 4 2023 30 Pharmac y Data Transac tion Service Facilit y OMEPRAZOLE (omeprazole ), 20 MG, CAPSULE DR ORAL, [employer], 1000 ea. BOTTLE Active [id number] 4 2023 30 Pharmac y Data Transac tion Service Facilit y VALACYCLOVI R (VALACYCLOV IR HCL), 500 MG, TABLET, ORAL, AUROB[employer]O PHARM, 90 ea. BOTTLE Active [id number] 4 2023 90 Pharmac y Data Transac tion Service Facilit y ZOLPIDEM TARTRATE (ZOLPIDEM TARTRATE), 10MG, TABLET, ORAL, AUROB[employer]O PHARM, 100 ea. BOTTLE Active [id number] 2023 30 Pharmac y Data Transac tion Service Facilit y Immunizations Combined list of available immunizations from the Department of Defense and Veterans Affairs facilities. Immunization Series Date Given Administered By Site Reaction Lot Number CVX Code Drug Plant Guide Status Comments Source Influenza, injectable, MDCK, preservative [...] Date Status Disposition Source Theater Facility OUTPATIENT [id number] 05/05 Released w/o Limitations Theater Facilit y [facility] Facility OUTPATIENT [id number] 05/09 Released w/o Limitations Theater Facilit y Social History Combined list of available smoking, tobacco, and other social history from Department of Defense and Veterans Affairs facilities. Social History Type Response Date Comment Sour e This section is an empty social history section. [facility]
--- OUTSIDE RECORDS SUMMARY | 2024-02-19 13:00 | XMS_ITS | Clinical Summary ---
Author Name Unknown Organization [facility] [employer] [facility] Address [address] [address] Phone Care Team Providers Care Broach Operator Name Role Phone Unavailable Primary Care Provider [...] topic Artur Francis I Personal/Family Self 1975 [address] [facility] [place] [address]
--- NOTE | 2024-02-19 13:30 | NM_ITS ---
Patient: RAUL STAPLES Facility:?[facility] RIS Patient ID:?[id number] Site Patient ID:?[id number]. Site :?1975 Study:?NM-Gallbladder Procedure JAYCEE rick/ GBEF-02/19/2024 4:22:34 PM Ordering Physician:RAJENDRA GLASS Final Report: INDICATION: Abdominal pain. TECHNIQUE: 5.3 millicuries technetium-99m labeled Mebrofenin has been given intravenously. Imaging has been performed to 50 minutes. Patient received 1.57 mcg of IV Kinevac and 27 additional minutes of imaging has been performed. Comparison: 02/24/2020 FINDINGS: Uptake by the liver is within normal limits. The gallbladder is identified at 20 minutes which increases to 50 minutes. Small bowel activity is identified at 10 minutes which increases to 50 minutes. After CCK there is an adequate response. The calculated gallbladder ejection fraction is 45 percent. Normal is greater than 35 percent. Increasing small bowel activity is identified after CCK. IMPRESSION: The hepatobiliary scan is within normal limits. The cystic and common bile ducts are patent. Uptake by the liver is within normal limits. The calculated gallbladder ejection fraction is 45 percent. Dictated by Ryland Meléndez MD @ 02/20/2024 9:43:31 AM Signed by:?Ryland Meléndez MD @02/20/2024 9:43:31 AM (Electronic Signature)
== END 2024-02-19 12:58 | disposition home or self-care (01) ==
LOC: NM 12:58
PROVIDERS: PCP Family Medicine; Visit Provider Family Medicine
DX: R10.10 Upper abdominal pain, unspecified (principal); G89.29 Other chronic pain
CPT/HCPCS: 78227; A9537; J2805

== ENCOUNTER 2024-02-25 14:12 | Emergency (ER) | payer OTHER, SELFPAY ==
[2024-02-25 14:17] VITALS: BP 117/77; PULSE 99; RESP 18; TEMP 36.5; O2SAT 99; BMI 27.1
--- NOTE | 2024-02-25 14:17 | ED_ITS ---
HPI - General Adult General Date Seen: 02/25/24 Chief complaint: Arrhythmia/Palpitations Stated complaint: heartrate of 104 Time Seen by Provider: 02/25/24 14:17 History of Present Illness HPI narrative: 8-year-old male with a history of GERD, sleep apnea, hypertension, psoriasis, gallbladder sludge presenting to the ER today concern for tachycardia. He does have a history of hypertension and elevated heart rate in the past. He had previously been managed on losartan and a beta-cade but had to stop the beta- cade because he is in the [employer]. He is now on losartan and diltiazem. His normal resting heart rate is somewhere between the 70s and 90s. He has been feeling normally lately. His family got him an apple watch recently which tracks his heart rate. He did a physical fitness test for the [employer] this morning which required a lot of cardiac exertion. He had to get his heart rate up to about 170, which would be his max. After he finished his work out he felt like his heart rate was persistently elevated. It has been measuring between 101 10 for the next 3 hours after his workout. He thought he might be dehydrated or low on energy so he did drink some fluids and ate some food but his heart rate still elevated. Other than his elevated heart rate he is feeling a little bit dizzy. He is otherwise fine. No chest pain. No shortness of breath. No fainting. No abdominal pain. No fever. No cough. No recent vomiting or diarrhea. His recent appetite, dietary intake, have been normal. No recent illnesses. No swelling in his legs. He recalls that when he had an elevated resting heart rate in the past, his potassium was low. Related Data Home Medications ?Medication ?Instructions ?Recorded ?Confirmed aspirin 81 mg chewable tablet 81 mg PO DAILY 07/11/22 02/25/24 cholecalciferol (vitamin D3) 25 1,000 unit PO DAILY 07/11/22 02/11/24 mcg (1,000 unit) tablet loratadine-pseudoephedrine ER 10 1 tab PO QDAY 02/11/24 02/25/24 mg-240 mg tablet,extended [id number] (Claritin-D 24 Hour) Previous Rx's ?Medication ?Instructions ?Recorded diltiazem HCl 180 mg 180 mg PO DAILY #90 caps 12/04/22 capsule,extended release 24 hr losartan 100 1 tab PO DAILY #90 tabs 12/04/22 mg-hydrochlorothiazide 25 mg tablet fluticasone propionate 50 1 spray intranasal QDAY #16 grams 10/09/23 mcg/actuation nasal spray,suspension (Flonase Allergy Relief) zolpidem 10 mg tablet 10 mg PO QHS PRN sleep #30 tabs 01/16/24 valacyclovir 500 mg tablet 500 mg PO DAILY #90 tabs 02/11/24 Allergies Allergy/AdvReac Type Severity Reaction Status Date / Time Penicillins Allergy Intermediate Rash Verified 02/11/24 12:29 lisinopril Allergy Mild eczema Verified 02/11/24 12:29 Influenza Virus Vaccines AdvReac Intermediate skin Verified 02/11/24 12:29 irritation on his face prednisone AdvReac Mild tachycardic, Verified 02/11/24 12:29 flushing [facility] Medical History (Updated 02/25/24 @ 17:25 by Matthew Welsh MD) Toe fracture ?S92.919A - Unspecified fracture of unspecified toe(s), initial encounter for closed fracture (ICD-10) GERD (gastroesophageal reflux disease) ?K21.9 - Gastro-esophageal reflux disease without esophagitis (ICD-10) Allergic rhinitis ?J30.9 - Allergic rhinitis, unspecified (ICD-10) Sleep apnea in adult ?G47.30 - Sleep apnea, unspecified (ICD-10) Psoriatic arthritis ?L40.50 - Arthropathic psoriasis, unspecified (ICD-10) Low vitamin D level ?R79.89 - Other specified abnormal findings of blood chemistry (ICD-10) Hypertension ?I10 - Essential (primary) hypertension (ICD-10) Herpes simplex virus (HSV) infection ?B00.9 - Herpesviral infection, unspecified (ICD-10) Psoriasis ?L40.9 - Psoriasis, unspecified (ICD-10) Surgical History (Updated 04/18/22 @ 09:39 by Luis Null) History of ureter stent History of laser assisted in situ keratomileusis ?Z98.890 - Other specified postprocedural states (ICD-10) History of inguinal hernia repair (2006) ?Z98.890 - Other specified postprocedural states (ICD-10) ?Z87.19 - Personal history of other diseases of the digestive system (ICD-10) Family History (Updated 04/18/22 @ 09:40 by Luis Null) Mother Diabetes Heart disease High blood pressure Depression Father Heart disease High blood pressure, Onset Age: 20 Depression Maternal Grandfather Stroke, Onset Age: 57 Other Cancer Social History (Updated 04/18/22 @ 09:41 by Luis Null) Narrative: chewing tobacco use 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 Alert. Conversant. Non toxic. HENT: Head: Atraumatic. Nose: Nose normal. Mouth/Throat: Oral mucosa is clear and moist. no trismus. Pharynx normal. Tonsils symmetric. No tonsillar enlargement, erythema, or exudate. Eyes: Conjunctivae normal. EOM normal. Pupils equal, round, and reactive to light. No scleral icterus. Neck: Normal range of motion. Neck supple. No tracheal deviation present. No JVD., no thyromegaly Cardiovascular: Normal rate, heart rate in the high 90s as I evaluate him, regul ar rhythm. No gallop. No friction rub. No murmur heard. Symmetric radial and PT artery pulses Pulmonary/Chest: Effort normal. No stridor. No respiratory distress. No wheezes. No rales. No rhonchi . No tenderness. Abdominal: Soft.No distension. No mass. No tenderness. No rebound. No guarding. Musculoskeletal: RUE: Normal range of motion. No tenderness. No deformity LUE: Normal range of motion. No tenderness. No deformity RLE: Normal range of motion. No edema. No tenderness. No deformity LLE: Normal range of motion. No edema. No tenderness. No deformity Neurological: Alert and oriented to person, place, and time. Normal strength. CN II-VII intact. No sensory deficit. GCS eye subscore is 4. GCS verbal subscore is 5. GCS motor subscore is 6. Normal coordination Skin: Skin is warm and dry. No rash noted. No pallor. Normal capillary refill. Psychiatric: Normal mood. Normal affect. Const: Vital Signs, click to edit/add: Vital Signs - 24 hr 02/25/24 14:17 Temperature 97.7 F Pulse Rate [Pulse Oximeter] 99 Respiratory Rate 18 Blood Pressure [Ri ght Upper Arm] 117/77 Pulse Oximetry 99 Oxygen Delivery Me thod Room Air Course Vital Signs Vital signs: Initial Vital Signs Temperature 97.7 F 02/25/24 14:17 Temperature Source Temporal Artery Scan 02/25/24 14:17 Pulse Rate 99 02/25/24 14:17 Respiratory Rate 18 02/25/24 14:17 Blood Pressure 117/77 02/25/24 14:17 Blood Pressure Mean 90 02/25/24 14:17 Pulse Oximetry 99 02/25/24 14:17 Oxygen Delivery Method Room Air 02/25/24 14:17 Vital Signs Temperature 97.7 F 02/25/24 14:17 Pulse Rate 99 02/25/24 14:17 Respiratory Rate 18 02/25/24 14:17 Blood Pressure 117/77 02/25/24 14:17 Pulse Oximetry 99 02/25/24 14:17 Oxygen Delivery Method Room Air 02/25/24 14:17 Temperature 97.7 F 02/25/24 14:17 Pulse Rate 99 02/25/24 14:17 Respiratory Rate 18 02/25/24 14:17 Blood Pressure 117/77 02/25/24 14:17 Pulse Oximetry 99 02/25/24 14:17 Oxygen Delivery Method Room Air 02/25/24 14:17 Medications Administered Medications: Discontinued Medications Generic Name Dose Route Start Last Admin Trade Name Freq PRN Reason Stop Dose Admin Sodium Chloride 1,000 mls @ 1,000 mls/hr 02/25/24 15:00 02/25/24 16:06 0.9 % Sodium Chloride 1000 Ml IV 02/25/24 15:59 Infused .Q1H HARRISON Infusion Potassium Bicarbonate 50 meq 02/25/24 16:45 02/25/24 16:36 Potassium Bicarb 25 Meq Effervescent Tab PO 02/25/24 16:46 50 meq ONCE ONE Administration Potassium Chloride 40 meq 02/25/24 15:55 02/25/24 16:36 Potassium Chloride 10 Meq Capsule Er PO 02/25/24 15:56 Not Given ONCE ONE Medical Decision Making MDM Narrative Medical decision making narrative: This is a pleasant 48-year-old gentleman presenting to the ER today for a 3 hour history of resting sinus tachycardia. He has a history of hypertension and apparently history of occasional sinus tachycardia in the past. 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 He notes that he did heavy workout this morning and has had persistent sinus tachycardia since then. EKG here in the ER shows sinus rhythm and actually heart rate of 99. Patient was treated with IV fluids here in the ER. He felt somewhat better with that. Labs also showed low potassium. Patient symptomatically felt better after receiving oral potassium. Heart rate normalized down into the 70s while here in the ER Differential for his tachycardia is broad. At this point he does have a leukocytosis but no fever or other infection symptoms. At this point no clear evidence for sepsis infection or sepsis. He is not anemic. No recent symptoms of bleeding. No renal failure. No sign of hyperthyroidism or thyroid storm. He is not having any chest pain or shortness of breath or hypoxia and has no recent travel or leg swelling to raise risk for DVT or PE. Screening troponin looking for possible ischemia triggered by his workout is negative. He is not having any chest pain to suggest ACS Patient feeling better after fluids and potassium. He refers to supplement his potassium with dietary supplements rather than get a prescription for potassium pills. Counseled to follow-up with his primary for recheck potassium within a week. Low potassium could be related to GI losses or sweating from his workup. Could potentially also be related to hydrochlorothiazide and needs to have his potassium rechecked for persistent hypokalemia. Precautions for return to the ER reviewed. Lab Data Labs: Lab Results 02/25/24 Range/Units 14:55 WBC 12.04 H (4.50-11.00) K/uL RBC 4.77 (4.30-5.90) m/uL Hgb 14.5 (13.5-17.5) gm/dL Hct 39.3 (37.0-53.0) % MCV 82 (80-100) fL MCH 30 (26-34) pg MCHC 37 H (32-36) gm/dL RDW Coeff of Tony 12.7 (11.5-15.5) % Plt Count 307 (140-440) K/uL Neut % (Auto) 74.7 H (42.0-72.0) % Lymph % (Auto) 16.9 L (20-44) % [place] % (Auto) 7.8 (0.0-11.0) % Eos % (Auto) 0.2 (0.0-7.0) % Baso % (Auto) 0.3 (0.0-3.0) % Neut # (Auto) 9.00 H (1.7-7.0) K/uL Lymph # (Auto) 2.00 (0.90-2.90) K/uL [place] # (Auto) 0.90 (0.00-0.90) K/UL Eos # (Auto) 0.00 (0.00-0.50) K/uL Baso # (Auto) 0.00 (0.00-0.30) K/uL Abs Immat Gran (auto) 0.00 (0.00-0.30) K/uL Imm/Tot Granulo (auto) 0.1 % Sodium 135 (135-149) mmol/L Potassium 3.0 L (3.6-5.1) mmol/L Chloride 103 (96-114) mmol/L Carbon Dioxide 26 (20-32) mmol/L Anion Gap 6 L (7-15) mEq/L BUN 20 (5-24) mg/dL Creatinine 1.0 (0.5-1.5) mg/dL Estimated Creat Clear 88.35 Estimated GFR 93 ml/min Glucose 117 H (60-115) mg/dL Calcium 8.7 (8.4-10.6) mg/dL Troponin I < 0.01 L (0.01-0.04) ng/mL TSH 0.583 (0.270-4.200) uIU/mL Discharge Plan Discharge Clinical Impression: Sinus tachycardia, Acute hypokalemia Patient Disposition: Home, Self-Care Condition: Stable Instructions: Potassium Content of Foods List (ED), Hypokalemia (ED), Tachycardia (ED) Additional Instructions: As we discussed, your potassium is moderately low today. We have been able to give you supplement for here in the ER. Please continue to supplement your potassium with dietary means such as bananas, avocados, tomato juice, potato skins. Please have your potassium recheck by your regular doctor within 1-2 weeks. If you have any more symptoms of dizziness, elevated heart rate, weakness, or any concerns, please come back to the ER right away to be rechecked. Prescriptions: No Action zolpidem 10 mg tablet 10 mg PO QHS PRN (Reason: sleep) Qty: 30 1RF cholecalciferol (vitamin D3) 25 mcg (1,000 unit) tablet 1,000 unit PO DAILY aspirin 81 mg tablet,chewable 81 mg PO DAILY diltiazem HCl 180 mg capsule,extended release 24hr 180 mg PO DAILY Qty: 90 4RF losartan-hydrochlorothiazide 100-25 mg tablet 1 tab PO DAILY Qty: 90 4RF Claritin-D 24 Hour 10-240 mg tablet extended release 24 hr 1 tab PO QDAY valacyclovir 500 mg tablet 500 mg PO DAILY Qty: 90 3RF fluticasone propionate [Flonase Allergy Relief] 50 mcg/actuation spray,suspension 1 spray intranasal QDAY Qty: 16 5RF Rx Instructions: administer into each nostril Follow Up/Referrals: Hebert Cantu MD [Primary Care Provider] - Stand Alone Forms: Jun Groupth Info Instructions
--- OUTSIDE RECORDS SUMMARY | 2024-02-25 14:50 | XMS_ITS | Clinical Summary ---
Author Organization [facility] Address [address] [address] Phone Care Team Providers Care Family Counselor Name Role Phone Unavailable Primary Care Provider [...] topic Artur Francis I Personal/Family Self 1975 [address] [facility] [place] [address]
--- OUTSIDE RECORDS SUMMARY | 2024-02-25 14:50 | XMS_ITS | Continuity of Care Document ---
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 BOTTLE Active [id number] 4 2023 6 Pharmac y Data Transac tion Service Facilit y FLUTICASONE PROPIONATE (FLUTICASON E PROPIONATE) , 50MCG, SPRAY SUSP, NASAL, APOTEX NICHOLE, 16 g AER W/ADAP Active [id number] 4 2023 16 Pharmac y Data Transac tion Service Facilit y FLUTICASONE PROPIONATE (FLUTICASON E PROPIONATE) , 50MCG, SPRAY SUSP, NASAL, APOTEX NICHOLE, 16 g AER W/ADAP Active [id number] 4 2023 16 Pharmac y Data Transac tion Service Facilit y FLUTICASONE PROPIONATE (FLUTICASON E PROPIONATE) , 50MCG, SPRAY SUSP, NASAL, APOTEX NICHOLE, 16 g AER W/ADAP Active [id number] 2023 16 Pharmac y Data Transac tion Service Facilit y HYDROCORTIS ONE ACETATE (hydrocorti sone acetate), 25 MG, SUPP.RECT, RECTAL, PATRIN PHARMA, 12 ea. B[address] Cancele d [id number] 4 [id number] : 2023 0 Pharmac y Data Transac tion Service Facilit y HYDROCORTIS ONE ACETATE (hydrocorti sone acetate), 25 MG, SUPP.RECT, RECTAL, [employer]RIN [employer], 12 ea. BOX Cancele d [id number] 4 [id number] : 2023 0 Pharmac y Data Transac tion Service Facilit y HYDROCORTIS ONE ACETATE (hydrocorti sone acetate), 25 MG, SUPP.RECT, RECTAL, [employer], 12 ea. B[address] Cancele d [id number] 4 [id number] : 2023 0 Pharmac y Data Transac tion Service Facilit y HYDROCORTIS ONE ACETATE (hydrocorti sone acetate), 25 MG, SUPP.RECT, RECTAL, [employer], 12 ea. BOX Active [id number] 2023 24 Pharmac y Data Transac tion Service Facilit y LANSOPRAZOL E (lansoprazo le), 30 MG, CAPSULE , ORAL, [employer], 90 ea. BOTTLE Active [id number] 4 2023 28 Pharmac y Data Transac tion Service Facilit y LOSARTAN-HY DROCHLOROTH IAZIDE (LOSARTAN/H YDROCHLOROT HIAZIDE), 100MG-25MG, TABLET, ORAL, [employer], 90 ea. BOTTLE Active [id number] 2023 90 Pharmac y Data Transac tion Service Facilit y OMEPRAZOLE (omeprazole ), 20 MG, CAPSULE DR ORAL, [employer], 1000 ea. BOTTLE Active [id number] 2023 30 Pharmac y Data Transac tion Service Facilit y OMEPRAZOLE (omeprazole ), 20 MG, CAPSULE DR ORAL, [employer], 1000 ea. BOTTLE Active [id number] 2023 30 Pharmac y Data Transac tion Service Facilit y OMEPRAZOLE (omeprazole ), 20 MG, CAPSULE DR ORAL, [employer], 1000 ea. BOTTLE Active [id number] 2023 30 Pharmac y Data Transac tion Service Facilit y VALACYCLOVI R (VALACYCLOV IR HCL), 500 MG, TABLET, ORAL, [employer], 90 ea. BOTTLE Active [id number] 2023 90 Pharmac y Data Transac tion Service Facilit y ZOLPIDEM TARTRATE (ZOLPIDEM TARTRATE), 10MG, TABLET, ORAL, [employer], 100 ea. BOTTLE Active [id number] 2023 30 Pharmac y Data Transac tion Service Facilit y Immunizations Combined list of available immunizations from the Department of Defense and Veterans Affairs facilities. Immunization Series Date Given Administered By Site Reaction Lot Number CVX Code Drug Application Architect Status Comments Source Influenza, injectable, MDCK, preservative [...] Date Status Disposition Source Theater Facility OUTPATIENT [id number] 05/05 Released w/o Limitations Theater Facilit y Theater Facility OUTPATIENT [id number] 05/09 Released w/o Limitations Theater Facilit y Social History Combined list of available smoking, tobacco, and other social history from Department of Defense and Veterans Affairs facilities. Social History Type Response Date Comment Sour e This section is an empty social history section. [facility]
--- OUTSIDE RECORDS SUMMARY | 2024-02-25 14:50 | XMS_ITS | Clinical Summary ---
Author Organization [facility] Address [place], [place] [address] Care Team Providers Care Carding Machine Operator Name Role Phone Romeo Hilliard PA-C Primary Care Provider [phone] Allergies Active Allergy Reactions Criticality Noted Date [...] Department Care Team Description 02/03/2024 Lab Requisition [facility] [phone] Rubia Willis MD from Last 3 Months [...] Comments Blood Pressure 104/64 08/18/2020 9:14 AM MEMORANDUM STATEMENT CLERK Pulse 65 08/18/2020 9:14 AM MEMORANDUM STATEMENT CLERK Temperature 36.6 ??C (97.9 ??F) 05/18/2018 3:45 PM CD T Respiratory Rate 16 08/18/2020 9:14 AM MEMORANDUM STATEMENT CLERK Oxygen Saturation 97% 05/18/2018 3:45 PM CDT [...] this topic Medical Devices Implanted Type Area Ergonomist Device Identifier Shelf Expiration Date Model / Serial / Lot Stent Uret [id number] Silhouette - [id number] Implanted:Qty: 1 on 05/08/2018 by Errol Conner MD at [facility] Left: Ureter [employer] Gideon 02/17/2020 [id number] / / [id number] Procedures Procedure Name Priority Date/Time Associated Diagnosis Comments LAB TRACKING EVENT Routine 02/03/2024 9: 30 AM CDT PATH TISSUE EXAM Routine 02/03/2024 9:30 AM CDT from Last 3 Months Results * LAB TRACKING EVENT (02/03/2024 9:30 AM CDT) Other (Other) Client Collect / Unknown 02/03/2024 9:30 AM CDT 02/03/2024 9:42 PM CDT Rubia Willis MD LAB BILL ONLY [facility] [address] [place] [address], * PATH TISSUE EXAM (02/03/2024 9:30 AM CDT) Case Report Pathology Report ?Case: [id number] ? Authorizing Provider: ??Lazaro, Katsiaryna, MD ?Collected: ? 02/03/2024 09 ? Ordering Location: ? [facility] ?Received: ?02/04/2024 1015 ? Pathologist: ? Mounajjed, Taofic, MD ? Specimens: ?? A) - Duodenum Biopsy ? B) - Stomach Biopsy ? C) - Distal Esophagus Biopsy ? D) - Mid Esophagus Biopsy ? 02/05/2024 1:02 PM CDT [facility] [employer] [facility] Final Diagnosis A) DUODENUM, BIOPSY: [...] for columnar mucosa 02/05/2024 1:02 PM CDT [facility] Clinical Information Epigastric abdominal pain. Upper GI endoscopy showed no mucosal abnormalities. 02/05/2024 1:02 PM CDT [facility] Gross Description A) Received in formalin [...] 02/04/2024 10:41 AM 02/05/2024 1:02 PM CDT [facility] Microscopic Description The final diagnosis is based on microscopic examination of appropriate sections of all specimens. 02/05/2024 1:02 PM CDT [facility] EN[facility] Additional Information Interpreted at [facility], Central Laboratory - [address], [place] [address] 02/05/2024 1:02 PM CDT [facility] Other (Duodenum Biopsy) 02/03/2024 9:30 AM CDT 02/04/2024 10:15 AM CDT Specimen (specimen) (Stomach Biopsy) 02/03/2024 9:30 AM CDT 02/04/2024 10:15 AM CDT Specimen (specimen) (Distal Esophagus Biopsy) 02/03/2024 9:30 AM CDT 02/04/2024 10:15 AM CDT Specimen (specimen) (Mid Esophagus Biopsy) 02/03/2024 9:30 AM CDT 02/04/2024 10:15 AM CDT Rubia Willis MD PATHOLOGY/CYTOLOGY [facility] [employer] [facility] [address] [place] [address], from Last 3 Months Advance Directives * Full Code (Latest Code Status on File) Date Activated Date Inactivated Comments 05/08/2018 12:40 AM 05/09/2018 2:19 PM * Full Code Date Activated Date Inactivated Comments 06/05/2011 9:59 AM 06/06/2011 2:27 AM Care Teams Carding Machine Operator Relationship Specialty Start Date End Date Romeo Hilliard PA-C [address] [place] [address] PCP - General Physician Laborer Livestock 12/08/18
[2024-02-25] MEDS: 0.9 % SODIUM CHLORIDE 1000 ml 1,000 ML IV (15:03)
[2024-02-25 15:07] LABS: Basophils Percent Auto 0.3 % (0.0-3.0); Eosinophils Percent Auto 0.2 % (0.0-7.0); Hematocrit 39.3 % (37.0-53.0); Hemoglobin* 14.5 gm/dL (13.5-17.5); Immature Granulocytes Pct Auto 0.1 %; Lymphocytes Percent Auto 16.9 % (20-44); Mean Corpuscular HGB Conc 37 gm/dL (32-36); Mean Corpuscular Hemoglobin 30 pg (26-34); Mean Corpuscular Volume 82 fL (80-100); Monocytes Percent Auto 7.8 % (0.0-11.0); Neutrophils Percent Auto 74.7 % (42.0-72.0); Platelet Count* 307 K/uL (140-440); RDW Coefficient of Variation % 12.7 % (11.5-15.5); Red Blood Count 4.77 m/uL (4.30-5.90); White Blood Count* 12.04 K/uL (4.50-11.00)
[2024-02-25 15:18] LABS: Slide Review Reflex No
[2024-02-25 15:26] LABS: Chloride* 103 mmol/L (96-114)
[2024-02-25 15:27] LABS: Sodium* 135 mmol/L (135-149)
[2024-02-25 15:29] LABS: Est. Creatinine Clearance* 88.35; Estimated Glomerular Filt Rate 93 ml/min
[2024-02-25 15:30] LABS: Anion Gap 6 mEq/L (7-15); Blood Urea Nitrogen* 20 mg/dL (5-24); Calcium* 8.7 mg/dL (8.4-10.6); Carbon Dioxide* 26 mmol/L (20-32); Glucose* 117 mg/dL (60-115)
[2024-02-25 15:50] LABS: Troponin I* < 0.01 ng/mL (0.01-0.04)
[2024-02-25 16:01] LABS: TSH With Reflex to FT4* 0.583 uIU/mL (0.270-4.200)
[2024-02-25] MEDS: POTASSIUM BICARB 25 MEQ EFFERVESCENT TAB 50 MEQ PO (16:36)
== END 2024-02-25 17:33 | disposition home or self-care (01) ==
PROVIDERS: Emergency Provider Emergency Medicine; PCP Family Medicine
DX: R00.0 Tachycardia, unspecified (principal); E87.6 Hypokalemia
CPT/HCPCS: 36415; 80048; 84443; 84484; 85025; 96360; 99283; 99284; A9270; J7030

== ENCOUNTER 2024-03-10 12:40 | Outpatient (CLI) | payer OTHER, SELFPAY ==
--- OUTSIDE RECORDS SUMMARY | 2024-03-10 12:43 | XMS_ITS | Continuity of Care Document ---
Author Name [facility] Organization [facility] Care Team Providers Care Movie Operator Name Role Phone [facility] Unavailable Unavailable Problems Combined list of problems [...] ORAL, IVAX PHARMACEUT, 100 ea. BOTTLE Active [id number] 2023 6 Pharmac y Data Transac tion Service Facilit y FLUTICASONE PROPIONATE (FLUTICASON E PROPIONATE) , 50MCG, SPRAY SUSP, NASAL, APOTEX NICHOLE, 16 g AER W/ADAP Active [id number] 2023 16 Pharmac y Data Transac tion Service Facilit y FLUTICASONE PROPIONATE (FLUTICASON E PROPIONATE) , 50MCG, SPRAY SUSP, NASAL, APOTEX NICHOLE, 16 g AER W/ADAP Active [id number] 2023 16 Pharmac y Data Transac tion Service Facilit y FLUTICASONE PROPIONATE (FLUTICASON E PROPIONATE) , 50MCG, SPRAY SUSP, NASAL, APOTEX NICHOLE, 16 g AER W/ADAP Active [id number] 2023 16 Pharmac y Data Transac tion Service Facilit y HYDROCORTIS ONE ACETATE (hydrocorti sone acetate), 25 MG, SUPP.RECT, RECTAL, PATRIN PHARMA, 12 ea. BOX Cancele d [id number] : 2023 0 Pharmac y Data Transac tion Service Facilit y HYDROCORTIS ONE ACETATE (hydrocorti sone acetate), 25 MG, SUPP.RECT, RECTAL, PATRIN PHARMA, 12 ea. BOX Cancele d [id number] : 2023 0 Pharmac y Data Transac tion Service Facilit y HYDROCORTIS ONE ACETATE (hydrocorti sone acetate), 25 MG, SUPP.RECT, RECTAL, PATRIN PHARMA, 12 ea. BOX Cancele d [id number] : 2023 0 Pharmac y Data Transac tion Service Facilit y HYDROCORTIS ONE ACETATE (hydrocorti sone acetate), 25 MG, SUPP.RECT, RECTAL, PATRIN PHARMA, 12 ea. BOX Active [id number] 2023 24 Pharmac y Data Transac tion Service Facilit y LANSOPRAZOL E (lansoprazo le), 30 MG, CAPSULE , ORAL, [employer], 90 ea. BOTTLE Active [id number] 2023 28 Pharmac y Data Transac tion Service Facilit y LOSARTAN-HY DROCHLOROTH IAZIDE (LOSARTAN/H YDROCHLOROT HIAZIDE), 100MG-25MG, TABLET, ORAL, AUROBINDO PHARM, 90 ea. BOTTLE Active [id number] 2023 30 Pharmac y Data Transac tion Service Facilit y OMEPRAZOLE (omeprazole ), 20 MG, CAPSULE DR ORAL, [employer], 1000 ea. BOTTLE Active [id number] 2023 30 Pharmac y Data Transac tion Service Facilit y OMEPRAZOLE (omeprazole ), 20 MG, CAPSULE , ORAL, [employer], 1000 ea. BOTTLE Active [id number] 2023 30 Pharmac y Data Transac tion Service Facilit y OMEPRAZOLE (omeprazole ), 20 MG, CAPSULE , ORAL, [employer], 1000 ea. BOTTLE Active [id number] 2023 30 Pharmac y Data Transac tion Service Facilit y VALACYCLOVI R (VALACYCLOV IR HCL), 1000 MG, TABLET, ORAL, AUROBINDO PHARM, 90 ea. BOTTLE Active [id number] 2023 90 Pharmac y Data Transac tion Service Facilit y VALACYCLOVI R (VALACYCLOV IR HCL), 500 MG, TABLET, ORAL, AUROBINDO PHARM, 90 ea. BOTTLE Active [id number] 4 2023 90 Pharmac y Data Transac tion Service Facilit y ZOLPIDEM TARTRATE (ZOLPIDEM TARTRATE), 10MG, TABLET, ORAL, AUROBINDO PHARM, 100 ea. BOTTLE Active [id number] 2023 30 Pharmac y Data Transac tion Service Facilit y Immunizations Combined list of available immunizations from the Department of Defense and Veterans Affairs facilities. Immunization Series Date Given Administered By Site Reaction Lot Number CVX Code Drug Product Introduction Manager Status Comments Source Influenza, injectable, MDCK, preservative [...] Date Status Disposition Source [facility] OUTPATIENT [id number] 05/05 Released w/o Limitations Theater Facilit y [facility] OUTPATIENT [id number] 05/09 Released w/o Limitations Theater Facilit y Social History Combined list of available smoking, tobacco, and other social history from Department of Defense and Veterans Affairs facilities. Social History Type Response Date Comment [facility] e This section is an empty social history section. [facility]
== END 2024-03-10 12:41 | disposition home or self-care (01) ==
LOC: FBOREF 12:41
PROVIDERS: PCP Family Medicine; Visit Provider Family Medicine
DX: E87.6 Hypokalemia (principal)
CPT/HCPCS: 80048

== ENCOUNTER 2024-08-09 09:18 | Outpatient (CLI) | payer OTHER, SELFPAY ==
--- OUTSIDE RECORDS SUMMARY | 2024-08-09 09:22 | XMS_ITS | Continuity of Care Document ---
Author Name [facility] Organization [facility] Care Team Providers Care Chief Nuclear Medicine Technologist Name Role Phone [facility] Unavailable Unavailable Problems Combined list of problems [...] Ordering Provider Order Date Order Qty Source CYCLOBENZAP RINE HCL (cyclobenza roberta HCl), 10 MG, TABLET, ORAL, [employer] PHARMAC, 1000 ea. BOTTLE Active [id number] 2023 20 Pharmac y Data Transac tion Service Facilit y FAMOTIDINE (FAMOTIDINE ), 20MG, TABLET, ORAL, IVAX PHARMACEUT, 100 ea. BOTTLE Active [id number] 2023 6 Pharmac y Data Transac tion Service Facilit y FLUTICASONE PROPIONATE (FLUTICASON E PROPIONATE) , 50MCG, SPRAY SUSP, NASAL, APOTEX NICHOLE, 16 g AER W/ADAP Active [id number] 2023 16 Pharmac y Data Transac tion Service Facilit y FLUTICASONE PROPIONATE (FLUTICASON E PROPIONATE) , 50MCG, SPRAY SUSP, NASAL, APOTEX NICHOLE, 16 g AER W/ADAP Active [id number] 2023 16 Pharmac y Data Transac tion Service Facilit y FLUTICASONE PROPIONATE (FLUTICASON E PROPIONATE) , 50MCG, SPRAY SUSP, NASAL, APOTEX NICHOLE, 16 g AER W/ADAP Active [id number] 2023 16 Pharmac y Data Transac tion Service Facilit y HYDROCORTIS ONE ACETATE (hydrocorti sone acetate), 25 MG, SUPP.RECT, RECTAL, PATRIN PHARMA, 12 ea. BOX Cancele d [id number] : 2023 0 Pharmac y Data Transac tion Service Facilit y HYDROCORTIS ONE ACETATE (hydrocorti sone acetate), 25 MG, SUPP.RECT, RECTAL, PATRIN PHARMA, 12 ea. BOX Cancele d [id number] : 2023 0 Pharmac y Data Transac tion Service Facilit y HYDROCORTIS ONE ACETATE (hydrocorti sone acetate), 25 MG, SUPP.RECT, RECTAL, PATRIN PHARMA, 12 ea. BOX Cancele d [id number] : 2023 0 Pharmac y Data Transac tion Service Facilit y HYDROCORTIS ONE ACETATE (hydrocorti sone acetate), 25 MG, SUPP.RECT, RECTAL, PATRIN PHARMA, 12 ea. BOX Active [id number] 2023 24 Pharmac y Data Transac tion Service Facilit y LANSOPRAZOL E (lansoprazo le), 30 MG, CAPSULE , ORAL, [employer], 90 ea. BOTTLE Active [id number] 2023 28 Pharmac y Data Transac tion Service Facilit y LOSARTAN POTASSIUM (LOSARTAN POTASSIUM), 100 MG, TABLET, ORAL, AUROBINDO PHARM, 1000 ea. BOTTLE Active [id number] 2023 90 Pharmac y Data Transac tion Service Facilit y LOSARTAN-HY DROCHLOROTH IAZIDE (LOSARTAN/H YDROCHLOROT HIAZIDE), 100MG-25MG, TABLET, ORAL, AUROBINDO PHARM, 90 ea. BOTTLE Active [id number] 2023 30 Pharmac y Data Transac tion Service Facilit y OMEPRAZOLE (omeprazole ), 20 MG, CAPSULE , ORAL, [employer], 1000 ea. BOTTLE Active [id number] 2023 30 Pharmac y Data Transac tion Service Facilit y OMEPRAZOLE (omeprazole ), 20 MG, CAPSULE , ORAL, [employer], 1000 ea. BOTTLE Active [id number] 2023 30 Pharmac y Data Transac tion Service Facilit y OMEPRAZOLE (omeprazole ), 20 MG, CAPSULE DR, ORAL, [employer], 1000 ea. BOTTLE Active [id number] 2023 30 Pharmac y Data Transac tion Service Facilit y VALACYCLOVI R (VALACYCLOV IR HCL), 1000 MG, TABLET, ORAL, AUROBINDO PHARM, 90 ea. BOTTLE Active [id number] 2023 90 Pharmac y Data Transac tion Service Facilit y VALACYCLOVI R (VALACYCLOV IR HCL), 500 MG, TABLET, ORAL, AUROBINDO PHARM, 90 ea. BOTTLE Active [id number] 2023 90 Pharmac y Data Transac tion Service Facilit y ZOLPIDEM TARTRATE (ZOLPIDEM TARTRATE), 10MG, TABLET, ORAL, AUROBINDO PHARM, 100 ea. BOTTLE Active [id number] 2023 30 Pharmac y Data Transac tion Service Facilit y Immunizations Combined list of available immunizations from the Department of Defense and Veterans Affairs facilities. Immunization Series Date Given Administered By Site Reaction Lot Number CVX Code Drug Senior Technical Manager Status Comments Source Influenza, injectable, MDCK, [...] Date Status Disposition Source Theater Facility OUTPATIENT [id number] 05/05 Released w/o Limitations Theater Facilit y [facility] Facility OUTPATIENT [id number] 05/09 Released w/o Limitations Theater Facilit y Social History Combined list of available smoking, tobacco, and other social history from Department of Defense and Veterans Affairs facilities. Social History Type Response Date Comment Sour e This section is an empty social history section. [facility]
--- OUTSIDE RECORDS SUMMARY | 2024-08-09 09:22 | XMS_ITS | Clinical Summary ---
Author Organization [facility] Address [place], [place] [address] Care Team Providers Care Equipment Coordinator Name Role Phone BabakKartiksiobhan Salazar PA-C Primary Care Provider [phone] Allergies Active Allergy Reactions Criticality Noted Date [...] Comments Blood Pressure 104/64 08/18/2020 9:14 AM [facility] Pulse 65 08/18/2020 9:14 AM [facility] Temperature 36.6 ??C (97.9 ??F) 05/18/2018 3:45 PM CD T Respiratory Rate 16 08/18/2020 9:14 AM [facility] Oxygen Saturation 97% 05/18/2018 3:45 PM CDT [...] 02/07/2022 02/07/2021, 05/18/2018, 07/02/2017 COVID-19 vaccine series (2023- season) 2024 10/30/2021, 11/30/2020 Influenza for age 9-49 06/06/2024 Pneumococcal series for age 6-64 Aged Out No longer eligible b ased on patient's age to complete this topic Medical Devices Implanted Type Area Shorer Device Identifier Shelf Expiration Date Model / Serial / Lot Stent Uret [id number] Silhouette - [id number] Implanted:Qty: 1 on 05/08/2018 by Errol Conner MD at [facility] Left: Ureter [employer] 02/17/2020 [id number] / / [id number] Advance Directives * Full Code (Latest Code Status on File) Date Activated Date Inactivated Comments 05/08/2018 12:40 AM 05/09/2018 2:19 PM * Full Code Date Activated Date Inactivated Comments 06/05/2011 9:59 AM 06/06/2011 2:27 AM Care Teams Equipment Coordinator Relationship Specialty Start Date End Date Romeo Hilliard, PAKatieC [address] [place] [address] PCP - General Physician Porcelain Enamel Sprayer 12/08/18
--- OUTSIDE RECORDS SUMMARY | 2024-08-09 09:22 | XMS_ITS | Clinical Summary ---
Author Organization [facility] Address [address] [address] Phone Care Team Providers Care Color Weigher Name Role Phone Unavailable Primary Care Provider Unavailabl e Allergies Active Allergy Reactions Criticality Noted Date Comments Lisinopril Tachycardia Medium 05/08/2018 Penicillins RASH Medium 08/10/2015 Medications aspirin EC 81 MG tablet Take 81 [...] mouth one time a day. 06/11/2022 Active hydroCHLOROthia zide (Hydrodiuril) 25 MG tablet Take 25 mg by mouth one time a day. 07/12/2020 Active losartan-hydroC HLOROthiazide (Hyzaar) 100-25 MG oral tablet Take 1 [...] Recorded Sex Assigned at Not on file Legal Sex Male 1:15 PM CDT Gender Identity Not on file Sexual Orientation [...] 02/25/1995 TETANUS (Standing Order) 02/25/1995 COVID-19 Vaccine (2023-2 5 season) 2024 Influenza Vaccine Seasonal (Standing Order) (#1) 2024 HPV Vaccine (Standing Order) Aged Out No longer eligible based on patient's age to complete this topic Pneumococcal/PCV20 Vaccine: Pediatrics (2-5 yrs) and At-Risk Patients (6-64 yrs) (Standing Order) Aged Out No longer eligible b ased on patient's age to complete this topic Insurance [employer]
== END 2024-08-09 09:19 | disposition home or self-care (01) ==
PROVIDERS: PCP Family Medicine; Visit Provider Family Medicine
DX: I10 Essential (primary) hypertension (principal); R53.83 Other fatigue; R79.89 Other specified abnormal findings of blood chemistry
CPT/HCPCS: 80048; 83735

== ENCOUNTER 2024-10-13 12:57 | Outpatient (CLI) | payer OTHER, SELFPAY | END 2024-10-13 12:58 | disposition home or self-care (01) | PROVIDERS: PCP Family Medicine; Visit Provider Family Medicine | DX: R35.0 Frequency of micturition (principal); I10 Essential (primary) hypertension; R79.89 Other specified abnormal findings of blood chemistry; Z12.5 Encounter for screening for malignant neoplasm of prostate | CPT/HCPCS: 80048; 80061; 84443; G0103 ==

== ENCOUNTER 2025-01-21 01:36 | Emergency (ER) | payer OTHER, SELFPAY ==
--- OUTSIDE RECORDS SUMMARY | 2025-01-21 01:38 | XMS_ITS | Clinical Summary ---
Author Organization [email or web address] Address [address] [place] [address] Care Team Providers Care Systems Analyst Name Role Phone Romeo Hilliard PA-C Primary Care Provider [phone] Allergies Active Allergy Reactions Criticality Noted Date Comments Lisinopril Tachycardia 05/08/2018 Penicillins Rash 08/10/2015 Medications aspirin (ECOTRIN) 81 mg enteric coated tablet Take 81 mg by mouth once daily with a meal. Active valACYclovir (VALTREX) 1 gram tablet Take 1 g by mouth once daily. Active losartan-hydrochl orothiazide (HYZAAR) 100-25 mg tabletIndications :Essential hypertension Take 1 tablet by mouth once daily. 90 tablet 3 9 Active atenoloL (TENORMIN) 25 mg tabletIndications :HTN (hypertension) Take 1 tablet by mouth 2 times daily. Annual cardiology visit due 04/2020. Future refills at time of visit 180 tablet 0 Active hydroCHLOROthiazi de (HCTZ) 25 mg tabletIndications :HTN (hypertension) Take 1 tablet by mouth once daily. 90 tablet 0 Active DILT-XR 180 mg Extended-Release capsuleIndication s:HTN (hypertension) TAKE 1 CAPSULE(180 MG) BY MOUTH EVERY DAY 90 Capsule 3 2 Active dilTIAZem (DILT-XR) 180 mg Extended-Release capsuleIndication s:HTN (hypertension) Take 1 Capsule (180 mg) by mouth once daily. 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 on file Not on file Obstetrics History Last Filed Vital Signs Vital Sign Reading Time Taken Comments Blood Pressure 104/64 08/18/2020 9:14 AM COUNTER STACKER Pulse 65 08/18/2020 9:14 AM COUNTER STACKER Temperature 36.6 C (97.9 F) 05/18/2018 3:45 PM CDT Respiratory Rate 16 08/18/2020 9:14 AM COUNTER STACKER Oxygen Saturation 97% 05/18/2018 3:45 PM CDT [...] age 15-65 02/25/1991 Hepatitis C screening for age 18-79 02/25/1994 Pneumococcal series for age 6-49 (1 of 2 - PCV) 02/25/1995 Tetanus booster 1996 Colonoscopy through age 75 02/25/2021 Lipids for age 45-75 02/25/2021 BMI (ht and wt on same day) for age 18+ 02/07/2022 02/07/2021, 05/18/2018, 07/02/2017 COVID-19 vaccine series ( season) 2024 10/30/2021, 11/30/2020 Influenza Vaccine (Season Ended) 2025 Medical Devices Implanted Type Area Message Broker Developer Device Identifier Shelf Expiration Date Model / Serial / Lot Stent Uret [id number] Silhouette - [id number] Implanted:Qty: 1 on 05/08/2018 by Errol Conner MD at [facility] Left: [facility] [employer] 02/17/2020 [id number]# / / [id number] Advance Directives * Full Code (Latest Code Status on File) Date Activated Date Inactivated Comments 05/08/2018 12:40 AM 05/09/2018 2:19 PM * Full Code Date Activated Date Inactivated Comments 06/05/2011 9:59 AM 06/06/2011 2:27 AM Care Teams Systems Analyst Relationship Specialty Start Date End Date Romeo Hilliard PA-C [address] [place] [address] PCP - General Physician Salesperson Sheet Music 12/08/18
--- OUTSIDE RECORDS SUMMARY | 2025-01-21 01:38 | XMS_ITS | Clinical Summary ---
Author Organization [facility] Address [address] [address] Phone Care Team Providers Care Bss Solution Architect Name Role Phone Unavailable Primary Care Provider [...] 76 06/28/2023 1:30 PM CDT Temperature 36.6 C (97.9 F) 06/28/2023 1:30 PM CDT Respiratory Rate 12 06/28/2023 1:30 PM CDT [...] Vaccine: Pediatrics (2-5 yrs) and At-Risk Patients (6-49 yrs) (Standing Order) Aged Out No longer eligible b ased on patient's age to complete this topic Insurance [employer]
[2025-01-21 01:42] VITALS: BP 147/83; PULSE 83; RESP 18; TEMP 37.3; O2SAT 99; BMI 27.8
--- NOTE | 2025-01-21 01:53 | ED.GENADULT ---
HPI - General Adult General Chief complaint: Laceration/Wound Stated complaint: Scrotum Laceration Time Seen by Provider: 01/21/25 01:49 History of Present Illness HPI narrative: Patient is a 49-year-old gentleman who shaving his scrotum in the shower earlier tonight when he neck his skin. He had fairly brisk bleeding initially but now the bleeding has completely stopped. He has had no difficulties with wound approximation. The laceration is more Min abrasion. He is on a baby aspirin daily for hyper tension and cardiovascular risk reduction. He has minimal discomfort. No other complaints or concerns. Related Data Home Medications ?Medication ?Instructions ?Recorded ?Confirmed aspirin 81 mg chewable tablet 81 mg PO DAILY 07/11/22 01/21/25 Previous Rx's ?Medication ?Instructions ?Recorded zolpidem 10 mg tablet 10 mg PO QHS PRN sleep #30 tabs 01/16/24 valacyclovir 500 mg tablet 500 mg PO DAILY #90 tabs 02/11/24 loratadine 10 mg tablet 10 mg PO QDAY #1 tab 08/09/24 losartan 100 mg tablet 100 mg PO QDAY #90 tabs 09/03/24 diltiazem HCl 180 mg 180 mg PO DAILY #90 caps 01/05/25 capsule,extended release 24 hr Allergies Allergy/AdvReac Type Severity Reaction Status Date / Time Penicillins Allergy Intermediate Rash Verified 10/13/24 12:38 lisinopril Allergy Mild eczema Verified 10/13/24 12:38 Influenza Virus Vaccines AdvReac Intermediate skin Verified 10/13/24 12:38 irritation on his face prednisone AdvReac Mild tachycardic, Verified 10/13/24 12:38 flushing Review of Systems Status of ROS: Reports: 10 or more systems reviewed and unremarkable except as noted in History and below [facility] Medical History Primary hypertension ?I10 - Essential (primary) hypertension (ICD-10) Toe fracture ?S92.919A - Unspecified fracture of unspecified toe(s), initial encounter for closed fracture (ICD-10) GERD (gastroesophageal reflux disease) ?K21.9 - Gastro-esophageal reflux disease without esophagitis (ICD-10) Allergic rhinitis ?J30.9 - Allergic rhinitis, unspecified (ICD-10) Sleep apnea in adult ?G47.30 - Sleep apnea, unspecified (ICD-10) Psoriatic arthritis ?L40.50 - Arthropathic psoriasis, unspecified (ICD-10) Low vitamin D level ?R79.89 - Other specified abnormal findings of blood chemistry (ICD-10) Herpes simplex virus (HSV) infection ?B00.9 - Herpesviral infection, unspecified (ICD-10) Psoriasis ?L40.9 - Psoriasis, unspecified (ICD-10) Surgical History H/O elbow surgery ?Z98.890 - Other specified postprocedural states (ICD-10) History of ureter stent History of laser assisted in situ keratomileusis ?Z98.890 - Other specified postprocedural states (ICD-10) History of inguinal hernia repair (2006) ?Z98.890 - Other specified postprocedural states (ICD-10) ?Z87.19 - Personal history of other diseases of the digestive system (ICD-10) Family History Mother Diabetes Heart disease High blood pressure Depression Father Heart disease High blood pressure, Onset Age: 20 Depression Maternal Grandfather Stroke, Onset Age: 57 Other Cancer Social History Narrative: chewing tobacco use consumes alcohol occasionally does not use illicit drugs , 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, 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, 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, social EtOH nonsmoker What is your current living situation?: I presently have a place to live Problems where you live: no known problems In the past 12 months, utilities in danger of being shut off: no In past 12 months, lack of transportation kept you from medical appts, meetings, work, or getting things needed for daily living: no In the past 12 mos, have been you worried that your food would run out before you had money to buy more?: never true In the past 12 mos, the food you bought just didn't last and you didn't have money to buy more?: never true Smoking Status: Never smoker Do you use any of these nicotine containing products: Smokeless Tobacco Second hand tobacco smoke exposure: No How often do you have a drink containing alcohol: never AUDIT-C Alcohol total score: 0 Non-prescribed substance use: denies use How often does anyone, including family, friends and others, physically hurt you: never How often does anyone, including family, friends and others, insult or talk down to you: never How often does anyone, including family, friends and others, threaten you with harm: never How often does anyone, including family, friends and others, scream or curse at you: never service: No Exam Narrative: Exam Narrative: EXAM GENERAL: Patient appears comfortable and well. EYES: No scleral icterus. LYMPH: No supraclavicular or cervical lymphadenopathy. SKIN: Minimal abrasion on the scrotum noted wound approximated and bleeding minimal. PSYCH: Good eye contact, speech is not pressured. Const: Vital Signs, click to edit/add: Vital Signs - 24 hr 01/21/25 01:42 Temperature 99.1 F Pulse Rate [Right Pulse Oximeter] 83 Respiratory Rate 18 Blood Pressure [Ri ght Upper Arm] 147/83 H Pulse Oximetry 99 Oxygen Delivery Me thod Room Air Course Course ED Course: Patient seen and examined. No further bleeding noted. Vital Signs Vital signs: Initial Vital Signs Temperature 99.1 F 01/21/25 01:42 Temperature Source Temporal Artery Scan 01/21/25 01:42 Pulse Rate 83 01/21/25 01:42 Respiratory Rate 18 01/21/25 01:42 Blood Pressure 147/83 H 01/21/25 01:42 Blood Pressure Mean 104 01/21/25 01:42 Blood Pressure Position Sitting 01/21/25 01:42 Pulse Oximetry 99 01/21/25 01:42 Oxygen Delivery Method Room Air 01/21/25 01:42 Vital Signs Temperature 99.1 F 01/21/25 01:42 Pulse Rate 83 01/21/25 01:42 Respiratory Rate 18 01/21/25 01:42 Blood Pressure 147/83 H 01/21/25 01:42 Pulse Oximetry 99 01/21/25 01:42 Oxygen Delivery Method Room Air 01/21/25 01:42 Temperature 99.1 F 01/21/25 01:42 Pulse Rate 83 01/21/25 01:42 Respiratory Rate 18 01/21/25 01:42 Blood Pressure 147/83 H 01/21/25 01:42 Pulse Oximetry 99 01/21/25 01:42 Oxygen Delivery Method Room Air 01/21/25 01:42 Medical Decision Making MDM Narrative Medical decision making narrative: Patient is a 49-year-old gentleman who has a minor abrasion on his scrotum from shaving bleeding has stopped he is not doing fine reassurance offered. Discharge Plan Discharge Clinical Impression: Abrasion Patient Disposition: Home, Self-Care Condition: Stable Additional Instructions: Symptomatic treatment Follow-up as needed Activity Level: No Restrictions Discharge Diet: Regular Prescriptions: No Action zolpidem 10 mg tablet 10 mg PO QHS PRN (Reason: sleep) Qty: 30 1RF loratadine 10 mg tablet 10 mg PO QDAY Qty: 1 0RF aspirin 81 mg tablet,chewable 81 mg PO DAILY valacyclovir 500 mg tablet 500 mg PO DAILY Qty: 90 3RF losartan 100 mg tablet 100 mg PO QDAY Qty: 90 3RF diltiazem HCl 180 mg capsule,extended release 24hr 180 mg PO DAILY Qty: 90 2RF Follow Up/Referrals: Hebert Cantu MD [Primary Care Provider] - Stand Alone Forms: [employer] Info Instructions
== END 2025-01-21 02:05 | disposition home or self-care (01) ==
PROVIDERS: Emergency Provider Internal Medicine; PCP Family Medicine
DX: S30.813A Abrasion of scrotum and testes, initial encounter (principal); Y93.E1 Activity, personal bathing and showering
CPT/HCPCS: 99282; 99283

== ENCOUNTER 2025-05-11 23:15 | Emergency (ER) | payer OTHER, SELFPAY ==
--- OUTSIDE RECORDS SUMMARY | 2025-05-11 23:16 | XMS_ITS | Continuity of Care Document ---
Author Name [facility] Organization [facility] Care Team Providers Care Blending Machine Operator Name Role Phone [facility] Unavailable Unavailable Problems Combined list of problems from Department of Defense and Veterans [facility] facilities. It does not include entries that were removed or entered in error. Problem Status Onset Date Problem Type Date of Resolution Comme nts Source UPPER RESPIRATORY INFECTION Active Condition DoD Medications Combined list of [...] ORAL, [facility], 1000 ea. BOTTLE Active [id number] 4 2023 20 Pharmac y Data Transac tion Service Facilit y LOSARTAN POTASSIUM (LOSARTAN POTASSIUM), 100 MG, TABLET, ORAL, [facility], 1000 ea. BOTTLE Active [id number] 4 2023 90 Pharmac y Data Transac tion Service Facilit y LOSARTAN-HY DROCHLOROTH IAZIDE (LOSARTAN/H YDROCHLOROT HIAZIDE), 100MG-25MG, TABLET, ORAL, [facility], 90 ea. BOTTLE Active [id number] 4 2023 30 Pharmac y Data Transac tion Service Facilit y VALACYCLOVI R (VALACYCLOV IR HCL), 500 MG, TABLET, ORAL, [facility], 90 ea. BOTTLE Active [id number] 4 2023 90 Pharmac y Data Transac tion Service Facilit y Immunizations Combined list of available immunizations from the Department of Defense and Veterans Affairs facilities. Immunization Series Date Given Administered By Site Reaction Lot Number CVX Code Drug Automatic Lump Making Machine Tender Status Comments Source Influenza, injectable, MDCK, preservative free, quadrivalent 2019 OVERHOLT, () Not Given Influenza , injectabl e, MDCK, preservat bhavana free, quadrival ent DoD Encounters Combined list of: 1) Encounters from Department of Veterans Affairs facilities going backup to the last 18 months, not all VA inpatient encounters are included; 2) Encounters from the Department of Defense facilities going backup to 280 months. Location Location Details Encounter Type Encounter Number Reason For Visit Attending Provider ADM Date DC Date Status Disposition Source [facility] OUTPATIENT [id number] 05/05 Released w/o Limitations [facility] OUTPATIENT [id number] 05/09 Released w/o Limitations [facility] Facilit y Social History Combined list of available smoking, tobacco, and other social history from Department of Defense and Veterans Affairs facilities. Social History Type Response Date Comment Sourc e This section is an empty social history section. DoD
--- OUTSIDE RECORDS SUMMARY | 2025-05-11 23:16 | XMS_ITS | Continuity of Care Document ---
Author Name [facility] Organization [facility] Care Team Providers Care Supervising Appraiser Name Role Phone [facility] Unavailable Unavailable Problems Combined list of problems from Department of Defense and Veterans [facility] facilities. It does not include entries that [...] ORAL, [facility], 1000 ea. BOTTLE Active [id number] 4 2023 20 Pharmac y Data Transac tion Service Facilit y LOSARTAN POTASSIUM (LOSARTAN POTASSIUM), 100 MG, TABLET, ORAL, [facility], 1000 ea. BOTTLE Active [id number] 4 2023 90 Pharmac y Data Transac tion Service Facilit y LOSARTAN-HY DROCHLOROTH IAZIDE (LOSARTAN/H YDROCHLOROT HIAZIDE), 100MG-25MG, TABLET, ORAL, [facility], 90 ea. BOTTLE Active [id number] 4 2023 30 Pharmac y Data Transac tion Service Facilit y VALACYCLOVI R (VALACYCLOV IR HCL), 500 MG, TABLET, ORAL, [facility], 90 ea. BOTTLE Active [id number] 4 2023 90 Pharmac y Data Transac tion Service Facilit y Immunizations Combined list of available immunizations from the Department of Defense and Veterans Affairs facilities. Immunization Series Date Given Administered By Site Reaction Lot Number CVX Code Drug Service Restorer Emergency Status Comments Source Influenza, injectable, MDCK, preservative [...] Date Status Disposition Source [facility] Facility OUTPATIENT [id number] 05/05 Released w/o Limitations Theater Fac[facility] OUTPATIENT [id number] 05/09 Released w/o Limitations Theater Facilit y Social History Combined list of available smoking, tobacco, and other social history from Department of Defense and Veterans Affairs facilities. Social History Type Response Date Comment Sourc e This section is an empty social history section. DoD
--- OUTSIDE RECORDS SUMMARY | 2025-05-11 23:17 | XMS_ITS | Clinical Summary ---
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 Not on file Not on file Obstetrics History Last Filed Vital Signs Vital Sign Reading Time Taken Comments Blood Pressure 104/64 08/18/2020 9:14 AM AUTOMOTIVE LIGHT MECHANIC Pulse 65 08/18/2020 9:14 AM AUTOMOTIVE LIGHT MECHANIC Temperature 36.6 C (97.9 F) 05/18/2018 3:45 PM CDT Respiratory Rate 16 08/18/2020 9:14 AM AUTOMOTIVE LIGHT MECHANIC Oxygen Saturation 97% 05/18/2018 3:45 PM CDT Inhaled Oxygen Concentration - - Weight 74.8 kg (165 lb) 02/07/2021 9:46 AM CDT Height 172.7 cm (5' 8) 02/07/2021 9:46 AM CDT Body Mass Index 25.09 02/07/2021 9:46 AM CDT Plan of Treatment Health Maintenance Due Date Last Done Comments Tetanus booster 02/25/1987 Depression screening for age 12+ 1988 HIV for age 15-65 02/25/1991 Hepatitis C screening for age 18-79 02/25/1994 Hepatitis B series for 19+ ( 1 of 3 - 19+ 3-dose series) 02/25/1995 Pneumococcal series for age 6-49 (1 of 2 - PCV) 02/25/1995 Colonoscopy through age 75 02/25/2021 Lipids for age 45-75 02/25/2021 BMI (ht and wt on same day) for age 18+ 02/07/2022 02/07/2021, 05/18/2018, 07/02/2017 COVID-19 vaccine series ( - 2023- season) 2024 10/30/2021, 11/30/2020 Influenza Vaccine (#1) 2025 Medical Devices Implanted Type Area Certified Diabetes Educator Device Identifier Shelf Expiration Date Model / Serial / Lot Stent Uret [id number] Silhouette - [id number] Implanted:Qty: 1 on 05/08/2018 by Errol Conner MD at [facility] Left: [facility] [employer] 02/17/2020 [id number] / / [id number] Advance Directives * Full Code (Latest Code Status on File) Date Activated Date Inactivated Comments 05/08/2018 12:40 AM 05/09/2018 2:19 PM * Full Code Date Activated Date Inactivated Comments 06/05/2011 9:59 AM 06/06/2011 2:27 AM Care Teams Infectious Waste Technician Relationship Specialty Start Date End Date Romeo Hilliard PA-C [address] [place] [id number] PCP - General Physician Portal Developer 12/08/18
--- OUTSIDE RECORDS SUMMARY | 2025-05-11 23:17 | XMS_ITS | Clinical Summary ---
Author Organization [facility] Address [address] [address] Phone Care Team Providers Care Hazardous Substances Engineer Name Role Phone Unavailable Primary Care Provider [...] (Standing Order) 02/25/1995 TETANUS (Standing Order) 02/25/1995 HPV Vaccine (Standing Order) Aged Out No longer eligible based on patient's age to complete this topic Pneumococcal/PCV20 Vaccine: Pediatrics (2-5 yrs) and At-Risk Patients (6-49 yrs) (Standing Order) Aged Out No longer eligible b ased on patient's age to complete this topic Insurance [facility]
[2025-05-11 23:26] VITALS: BP 146/105; PULSE 81; RESP 16; TEMP 36.2; O2SAT 98; BMI 28.0
[2025-05-12] VITALS (9 sets, daily range): BP systolic 129–142; BP diastolic 82–92; PULSE 59–68; RESP 16; TEMP 36.2; O2SAT 94–97
--- NOTE | 2025-05-12 00:12 | ED.GENADULT ---
HPI - General Adult General Time Seen by Provider: 00:13 Date Seen: 05/12/25 Chief complaint: Hypertension Stated complaint: high BP Time Seen by Provider: 05/12/25 00:11 Source: patient Mode of arrival: ambulatory History of Present Illness HPI narrative: Artur is a 50-year-old male with a past medical history of hypertension who presents to the emergency department for evaluation of elevation in his blood pressure. Patient reports that tonight feeling unwell for the past 3 weeks. Patient states that he has not been sleeping, feels as if he has a knot in his stomach, and feels as if he cannot turn off his flight or fight response. Patient reports being seen in clinic by his primary care provider on Friday and at that time had some medication changes where he was to stop taking his diltiazem, and was started on atenolol 25 mg daily. Patient states he has been taking his medications as directed which include losartan 100 mg daily and atenolol 25 mg at bedtime. Patient states that tonight was feeling unwell, felt thirsty, and wired. Patient states he took his blood pressure at home and noted it to be 150/106. Patient denies any weakness, dizziness, chest pain, shortness of breath, abdominal pain, paresthesias. Patient states that he did quit nicotine cold turkey back in March. States tonight he did put on a nicotine patch around 1800 thinking that it might help his withdrawal symptoms. No other complaints. Related Data Home Medications ?Medication ?Instructions ?Recorded ?Confirmed aspirin 81 mg chewable tablet 81 mg PO DAILY 07/11/22 05/09/25 Previous Rx's ?Medication ?Instructions ?Recorded losartan 100 mg tablet 100 mg PO QDAY #90 tabs 09/03/24 valacyclovir 500 mg tablet 500 mg PO DAILY #90 tabs 02/08/25 atenolol 25 mg tablet 25 mg PO QDAY #90 tabs 05/09/25 zolpidem 10 mg tablet 10 mg PO QHS PRN sleep #30 tabs 05/10/25 Allergies Allergy/AdvReac Type Severity Reaction Status Date / Time Penicillins Allergy Intermediate Rash Verified 05/11/25 23:25 lisinopril Allergy Mild eczema Verified 05/11/25 23:25 Influenza Virus Vaccines AdvReac Intermediate skin Verified 05/11/25 23:25 irritation on his face prednisone AdvReac Mild tachycardic, Verified 05/11/25 23:25 flushing Review of Systems Narrative: Past medical history, past surgical history, medications, allergies, family history, and social history were reviewed with the patient. No additional pertinent items. A medically appropriate review of systems was performed with pertinent positives and negatives noted in HPI, all other systems negative. [facility] Medical History Primary hypertension ?I10 - Essential (primary) hypertension (ICD-10) Toe fracture ?S92.919A - Unspecified fracture of unspecified toe(s), initial encounter for closed fracture (ICD-10) GERD (gastroesophageal reflux disease) ?K21.9 - Gastro-esophageal reflux disease without esophagitis (ICD-10) Allergic rhinitis ?J30.9 - Allergic rhinitis, unspecified (ICD-10) Sleep apnea in adult ?G47.30 - Sleep apnea, unspecified (ICD-10) Psoriatic arthritis ?L40.50 - Arthropathic psoriasis, unspecified (ICD-10) Low vitamin D level ?R79.89 - Other specified abnormal findings of blood chemistry (ICD-10) Herpes simplex virus (HSV) infection ?B00.9 - Herpesviral infection, unspecified (ICD-10) Psoriasis ?L40.9 - Psoriasis, unspecified (ICD-10) Surgical History H/O elbow surgery ?Z98.890 - Other specified postprocedural states (ICD-10) History of ureter stent History of laser assisted in situ keratomileusis ?Z98.890 - Other specified postprocedural states (ICD-10) History of inguinal hernia repair (2006) ?Z98.890 - Other specified postprocedural states (ICD-10) ?Z87.19 - Personal history of other diseases of the digestive system (ICD-10) Family History Mother Diabetes Heart disease High blood pressure Depression Father Heart disease High blood pressure, Onset Age: 20 Depression Maternal Grandfather Stroke, Onset Age: 57 Other Cancer Social History Narrative: chewing tobacco use consumes alcohol occasionally does not use illicit drugs , 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, 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, 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, 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 EtOH nonsmoker What is your current living situation?: I presently have a place to live Problems where you live: no known problems In the past 12 months, utilities in danger of being shut off: no In past 12 months, lack of transportation kept you from medical appts, meetings, work, or getting things needed for daily living: no In the past 12 mos, have been you worried that your food would run out before you had money to buy more?: never true In the past 12 mos, the food you bought just didn't last and you didn't have money to buy more?: never true Smoking Status: Never smoker Do you use any of these nicotine containing products: Smokeless Tobacco Second hand tobacco smoke exposure: No How often do you have a drink containing alcohol: never AUDIT-C Alcohol total score: 0 Non-prescribed substance use: denies use How often does anyone, including family, friends and others, physically hurt you: never How often does anyone, including family, friends and others, insult or talk down to you: never How often does anyone, including family, friends and others, threaten you with harm: never How often does anyone, including family, friends and others, scream or curse at you: never service: No Exam Narrative: Exam Narrative: General: Afebrile, no acute distress HEENT: Normocephalic, atraumatic, conjunctiva normal. MMM Neck: non-tender, supple Cardio: regular rate. regular rhythm Resp: Normal work of breathing, no respiratory distress, lungs clear bilaterally, no wheezing, rhonchi, rales Chest/Back: no visual signs of trauma, no midline tenderness, no CVA tenderness Abdomen: soft, non distension, no tenderness, no peritoneal signs Neuro: alert and fully oriented. CN II-XII grossly intact. Grossly normal strength and sensation in all extremities. MSK: no deformities. Normal range of motion Integumentary/Skin: no rash visualized, normal color Psych: normal affect, normal behavior Const: Vital Signs, click to edit/add: Vital Signs - 24 hr 05/11/25 23:26 05/12/25 00:07 05/12/25 00:15 Temperature 97.2 F L Pulse Rate 59 L 67 Pulse Rate [Pulse Oximeter] 81 Respiratory Rate 16 Blood Pressure Blood Pressure [Ri ght Upper Arm] 146/105 H Pulse Oximetry 98 97 97 Oxygen Delivery Me thod Room Air 05/12/25 00:16 05/12/25 00:30 05/12/25 00:31 Temperature Pulse Rate 65 64 65 Pulse Rate [Pulse Oximeter] Respiratory Rate Blood Pressure 129/88 135/83 Blood Pressure [Ri ght Upper Arm] Pulse Oximetry 96 96 94 Oxygen Delivery Me thod 05/12/25 00:45 05/12/25 00:46 05/12/25 01:23 Temperature 97.2 F L Pulse Rate 63 64 Pulse Rate [Pulse Oximeter] 68 Respiratory Rate 16 Blood Pressure 132/82 Blood Pressure [Ri ght Upper Arm] 142/92 H Pulse Oximetry 97 95 97 Oxygen Delivery Me thod Room Air 05/12/25 01:24 Temperature 97.2 F L Pulse Rate Pulse Rate [Pulse Oximeter] 68 Respiratory Rate 16 Blood Pressure Blood Pressure [Ri ght Upper Arm] 142/92 H Pulse Oximetry Oxygen Delivery Me thod Course Vital Signs Vital signs: Initial Vital Signs Respiratory Effort Normal, Spontaneous, Non-Labored 05/11/25 23:25 Respiratory Depth Normal 05/11/25 23:25 Vital Signs Temperature 97.2 F L 05/11/25 23:26 Pulse Rate 81 05/11/25 23:26 Respiratory Rate 16 05/11/25 23:26 Blood Pressure 146/105 H 05/11/25 23:26 Pulse Oximetry 98 05/11/25 23:26 Oxygen Delivery Method Room Air 05/11/25 23:26 Temperature 97.2 F L 05/12/25 01:24 Pulse Rate 68 05/12/25 01:24 Respiratory Rate 16 05/12/25 01:24 Blood Pressure 142/92 H 05/12/25 01:24 Pulse Oximetry 97 05/12/25 01:23 Oxygen Delivery Method Room Air 05/12/25 01:23 Medical Decision Making MDM Narrative Medical decision making narrative: Artur is a 50-year-old male with a past medical history of hypertension who presents to the emergency department for evaluation of elevation in his blood pressure. Upon arrival patient is nontoxic appearing, afebrile, no distress. Patient denies any chest pain, shortness of breath, weakness, dizziness, cranial nerves 2-12 intact with no focal motor, sensory deficit, no acute neurological deficit. Upon arrival patient is slightly hypertensive with blood pressure 146/105, heart rate 81, oxygen 98% on room air. Differential diagnosis includes but is not limited to hypertensive urgency versus emergency versus history of hypertension with elevated blood pressure versus ACS versus metabolic/electrolyte abnormality versus nicotine side effect among others. I reviewed EKG which demonstrates sinus rhythm with a ventricular rate of 71 beats per minute, no acute ischemic change. Comprehensive labs unremarkable with no leukocytosis white blood cell count 10.8, hemoglobin 14.4, no acute metabolic or electrolyte abnormality, no transaminitis. Point of care troponin negative. Repeat blood pressure 142/92. No evidence of acute end-organ damage. I reviewed patient's most recent visit with his primary care provider this past Friday. I discussed results with patient. At this time no emergent indication for additional medications at this time, no emergent indication to lower patient's blood pressure in the emergency department at this time. I discussed with patient and recommend continuing his medications as normal as well as to keep a blood pressure log over the next few days. If blood pressure remains elevated recommend following up with his primary care provider for possible medication adjustment (dose increase vs medication change, etc). Strict return precautions discussed. Patient understands and agrees the plan. Lab Data Labs: Lab Results 05/12/25 05/12/25 Range/Units 00:11 00:28 WBC 10.86 (4.50-11.00) K/uL RBC 4.65 (4.30-5.90) m/uL Hgb 14.4 (13.5-17.5) gm/dL Hct 39.2 (37.0-53.0) % MCV 84 (80-100) fL MCH 31 (26-34) pg MCHC 37 H (32-36) gm/dL RDW Coeff of Tony 13.0 (11.5-15.5) % Plt Count 259 (140-440) K/uL Neut % (Auto) 70.8 (42.0-72.0) % Lymph % (Auto) 19.8 L (20-44) % [place] % (Auto) 7.4 (0.0-11.0) % Eos % (Auto) 1.1 (0.0-7.0) % Baso % (Auto) 0.6 (0.0-3.0) % Neut # (Auto) 7.69 H (1.7-7.0) K/uL Lymph # (Auto) 2.20 (0.90-2.90) K/uL [place] # (Auto) 0.80 (0.00-0.90) K/UL Eos # (Auto) 0.12 (0.00-0.50) K/uL Baso # (Auto) 0.07 (0.00-0.30) K/uL Abs Immat Gran (auto) 0.03 (0.00-0.30) K/uL Imm/Tot Granulo (auto) 0.3 % Sodium 137 (135-149) mmol/L Potassium 3.7 (3.6-5.1) mmol/L Chloride 105 (96-114) mmol/L Carbon Dioxide 27 (20-32) mmol/L Anion Gap 5 L (7-15) mEq/L BUN 19 (5-24) mg/dL Creatinine 0.8 (0.5-1.5) mg/dL Estimated Creat Clear 108.06 Estimated GFR 108 ml/min Glucose 98 (60-115) mg/dL Calcium 8.9 (8.4-10.6) mg/dL Total Bilirubin 0.6 (0.1-1.5) mg/dL AST 30 (12-35) U/L ALT 31 (4-50) U/L Alkaline Phosphatase 90 (40-150) U/L Total Protein 6.5 (6.0-8.3) g/dL Albumin 3.9 (3.3-5.0) g/dL POC Troponin I 0.01 (0.01-0.04) ng/ml Discharge Plan Discharge Clinical Impression: Hypertension Patient Disposition: Home, Self-Care Condition: Stable Additional Instructions: Please follow-up with your primary care provider in the next 3-5 days for further evaluation and follow-up. Recommend continuing your blood pressure medications as previously directed, keeping a log of your blood pressure to see what changes may need to be made over the next week. Please return to the emergency department if you develop weakness/dizziness, chest pain, shortness of breath, any worsening symptoms. It was a pleasure taking care of you today. Prescriptions: No Action atenolol 25 mg tablet 25 mg PO QDAY Qty: 90 1RF aspirin 81 mg tablet,chewable 81 mg PO DAILY losartan 100 mg tablet 100 mg PO QDAY Qty: 90 3RF valacyclovir 500 mg tablet 500 mg PO DAILY Qty: 90 3RF zolpidem 10 mg tablet 10 mg PO QHS PRN (Reason: sleep) Qty: 30 1RF Follow Up/Referrals: Hebert Cantu MD [Primary Care Provider, Family Practice] [facility] Inst[facility]
[2025-05-12 00:34] LABS: Hematocrit 39.2 % (37.0-53.0); Hemoglobin* 14.4 gm/dL (13.5-17.5); Immature Granulocytes Abs Auto 0.03 K/uL (0.00-0.30); Immature Granulocytes Pct Auto 0.3 %; Mean Corpuscular HGB Conc 37 gm/dL (32-36); Mean Corpuscular Hemoglobin 31 pg (26-34); Mean Corpuscular Volume 84 fL (80-100); RDW Coefficient of Variation % 13.0 % (11.5-15.5); Red Blood Count 4.65 m/uL (4.30-5.90); White Blood Count* 10.86 K/uL (4.50-11.00)
[2025-05-12 00:39] LABS: Lymphocytes Absolute Auto 2.20 K/uL (0.90-2.90); Slide Review Reflex No
[2025-05-12 00:43] LABS: Albumin* 3.9 g/dL (3.3-5.0); Chloride* 105 mmol/L (96-114); Potassium* 3.7 mmol/L (3.6-5.1); Sodium* 137 mmol/L (135-149)
[2025-05-12 00:46] LABS: Alanine Aminotransferase* 31 U/L (4-50); Alkaline Phosphatase* 90 U/L (40-150); Anion Gap 5 mEq/L (7-15); Aspartate Amino Transferase* 30 U/L (12-35); Bilirubin Total* 0.6 mg/dL (0.1-1.5); Blood Urea Nitrogen* 19 mg/dL (5-24); Carbon Dioxide* 27 mmol/L (20-32); Creatinine* 0.8 mg/dL (0.5-1.5); Est. Creatinine Clearance* 108.06; Estimated Glomerular Filt Rate 108 ml/min; Total Protein* 6.5 g/dL (6.0-8.3)
[2025-05-12 00:47] LABS: Calcium* 8.9 mg/dL (8.4-10.6); Glucose* 98 mg/dL (60-115)
[2025-05-12 00:59] LABS: Troponin, Point-of-Care* 0.01 ng/ml (0.01-0.04)
--- OUTSIDE RECORDS SUMMARY | 2025-05-12 01:20 | XMS_ITS | Clinical Summary ---
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
--- OUTSIDE RECORDS SUMMARY | 2025-05-12 01:20 | XMS_ITS | Clinical Summary ---
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 Not on file Not on file Obstetrics History Last Filed Vital Signs Vital Sign Reading Time Taken Comments Blood Pressure 104/64 08/18/2020 9:14 AM ADMINISTRATION ASSISTANT Pulse 65 08/18/2020 9:14 AM ADMINISTRATION ASSISTANT Temperature 36.6 C (97.9 F) 05/18/2018 3:45 PM CDT Respiratory Rate 16 08/18/2020 9:14 AM ADMINISTRATION ASSISTANT Oxygen Saturation 97% 05/18/2018 3:45 PM CDT [...] (#1) 2025 Medical Devices Implanted Type Area Lead Janitor Device Identifier Shelf Expiration Date Model / Serial / Lot Stent Uret [id number] Silhouette - [id number] Implanted:Qty: 1 on 05/08/2018 by Errol Conner MD at [facility] Left: [facility] [employer] 02/17/2020 [id number] / / [id number] Advance Directives * Full Code (Latest Code Status on File) Date Activated Date Inactivated Comments 05/08/2018 12:40 AM 05/09/2018 2:19 PM * Full Code Date Activated Date Inactivated Comments 06/05/2011 9:59 AM 06/06/2011 2:27 AM Care Teams Business Control Manager Relationship Specialty Start Date End Date Romeo Hilliard PA-C [address] [place] [id number] PCP - General Physician Retail Buyer 12/08/18
== END 2025-05-12 01:25 | disposition home or self-care (01) ==
PROVIDERS: Emergency Provider Emergency Medicine; PCP Family Medicine
DX: I10 Essential (primary) hypertension (principal)
CPT/HCPCS: 36415; 80053; 84484; 85025; 93005; 99283; 99285